=== PATIENT | female | born 1935 | race Caucasian/White ===

== ENCOUNTER 2018-01-25 14:44 | Inpatient (IN) ==
[2018-01-25] MEDS ORDERED: Vancomycin 1,500 MG in D5% in Water 250 ML IVPB SCH (17:00)
[2018-01-25] MEDS: *HR* Metformin 500 MG TABLET PO SCH (17:39)
[2018-01-25] MEDS ORDERED: Vancomycin 1,000 MG VIAL IVPB SCH (18:00)
[2018-01-25] MEDS: Lisinopril 20 MG TABLET PO SCH (20:03)
[2018-01-25] MEDS: Aspirin Enteric Coated 325 MG Tablet PO SCH (20:04)
[2018-01-26] MEDS ORDERED: [UNRECOGNIZED DRUG - OTHER] PO SCH (09:00)
[2018-01-26] MEDS: Multivit/Ca/Min/Fe/FA 1 TAB TABLET PO SCH (09:43)
[2018-01-26] MEDS: *HR* Metformin 500 MG TABLET PO SCH ×2 (09:43→17:16)
[2018-01-26] MEDS: Aspirin Enteric Coated 325 MG Tablet PO SCH ×2 (09:44→20:51)
[2018-01-26] MEDS: Lisinopril 20 MG TABLET PO SCH ×2 (09:44→20:50)
[2018-01-26] MEDS: Cholecalciferol (D-3) 1,000 UNIT TABLET PO SCH (09:44)
--- NOTE | 2018-01-26 18:28 | Internal Med History&Physical ---
Date of Encounter: 01/26/18 Time of Encounter: 17:55 Assessment and Plan (1) MSSA (methicillin susceptible Staphylococcus aureus) infection Current visit: Yes Status: Acute Continue IV antibiotics to complete 6 week course. Will add lactobacillus. (2) Status post revision of total hip replacement Current visit: No Status: Acute PT and OT evaluations have been ordered. She has been ordered aspirin for DVT prophylaxis. Monitor CBC. (3) DMII (diabetes mellitus, type 2) Current visit: No Status: Chronic Hemoglobin A1c was 6.5% in 01/17/2018. 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 Qualifiers: Hypertension type: essential hypertension Qualified Code(s): I10 - Essential (primary) hypertension (5) Acute blood loss anemia Current visit: No Status: Acute Monitor CBC as per above. Internal Medicine - H&P: HPI Chief complaint: Hip revision surgery Admitted From: Hospital to Hospital Transfer Plans for Post Hospital Care: Home History of present illness: Ms. Aburto is a 82 year old female who underwent right femoral revision of previous total hip replacement with irrigation and debridement due to infection on 08/21/2017. Her postop course was unremarkable and she was discharged to [facility] swing bed for IV antibiotics and therapy intervention. She states the original THR was done June 2014 at [facility]. She reports bumping her leg right femoral area March 2017 and developing a "knot " at the site of impact. She was eventually referred to after a few weeks who did an aspiration procedure and was found to have MSSA. She reports multiple courses of antibiotics failed to clear the infection. She was seen in wound clinic and hip MRI showed a fistulous tract. She was referred back to Dr. Valencia who did revision surgery of the femoral component without acetabular component revision. Cultures again grew MSSA. She was ordered IV vancomycin for 6 weeks. Her orthopedic history is significant otherwise for previous right ulnar nerve transposition surgery and bilateral arm fracture repair. She denies gout or other bone joint or muscle disorders. Past Med Surg Social Fam HX - Past Medical History Medical history: CVA, diabetes, hyperlipidemia, hypertension, osteoporosis, other Additional medical history: carpal tunnel syndrome Psychiatric history: no psych history - Past Surgical History Surgical History: cataract, hysterectomy, orthopedic, other, other Additional surgical history: right hip replacement 2014 - Social History Smoking Status: Never smoker Smokeless Tobacco Status: No Alcohol use: none Drug use: none - Family History Father Living Status: Hx Family Cardiac Disorders: Yes Internal Medicine - H&P: Meds Bran/Gum/Fib/Johana/Psyl/Kelp/Pec [Fiber 6 Tablet] 1,000 mg PO DAILY 08/06/17 [ History] Calcium Carbonate/Vitamin D3 [Calcium 600 + Vit D Tablet] 1 tab PO BID 08/06/17 [History] Clopidogrel [Plavix] 75 mg PO DAILY 08/06/17 [History] Ferrous Sulfate [Iron] 325 mg PO SUTH 08/06/17 [History] Lisinopril [Zestril] 20 mg PO BID 08/06/17 [History] Multivitamin [One Daily Multivitamin] 1 tab PO DAILY 08/06/17 [History] Rosuvastatin [Crestor] 20 mg PO HS 08/06/17 [History] metFORMIN [Glucophage] 500 mg PO BIDWM 08/06/17 [History] Aspirin Enteric Coated [Aspirin EC] 325 mg PO BID #20 tablet. 01/20/18 [Rx] OxyCODONE Immed Rel [Roxicodone 5 MG] 5 mg PO Q6HR PRN 7 Days #28 tablet [Rx] Acetaminophen [Tylenol] 650 mg PO Q6HR PRN 01/21/18 [History] Naproxen Sodium [Aleve] 220 mg PO BID PRN 01/21/18 [History] Vancomycin [Vancocin] 1,000 mg IV Q12HR 42 Days #84 vial 01/24/18 [Rx] 3 Allergy/AdvReac Type Severity Reaction Status Date / Time No Known Allergies Allergy Verified 01/21/18 14:03 All Systems PM: A 10-system review of systems was performed and is negative for pertinent findings except as documented above in the HPI. Review of systems: Gen.: She states her weight has been stable the past few months Cardiovascular: She has history of hypertension but denies [place] heart failure angina DVT or pulmonary embolus Respiratory: She is a lifelong nonsmoker and has no known chronic lung disease. GI: She denies disorders of her liver gallbladder or exocrine pancreas : She has had kidney stones remotely. She has had occasional UTIs. She denies other kidney or bladder disorders. Neurologic: She reports a "stroke" November 2016 with no permanent sequelae. She denies other large distribution strokes or seizures. Endocrine: She was diagnosed with DM 2 approximate 1997. She has hyperlipidemia but denies thyroid disease. Hematology/oncology: She developed postoperative anemia. She denies internal malignancies other blood disorders. Psychiatric: She has depression but denies anxiety or other mental health issues. [place] skeletal: As per history of present illness - Constitutional Vitals: Temp Pulse Resp BP Pulse Ox 98.2 F 94 16 125/72 98 01/26/18 06:31 01/26/18 06:31 01/26/18 06:31 01/26/18 06:31 01/26/18 06:31 Exam: Gen.: She is a well-developed well-nourished female sitting in a chair at bedside who appears in no acute distress HEENT: Head is atraumatic and normocephalic. Eyes: EOMI. There is no sclerae icterus. Mouth: Mucosa is moist. Neck: Supple and nontender. There is no thyromegaly or adenopathy noted. Heart: Regular without murmurs gallops or ectopics Lungs: No wheezes or crackles are heard. Abdomen: Soft and nontender. Exam is limited because she is in the seated position. Extremities: There is no cyanosis edema or clubbing noted. Dorsalis pedis and posttibial pulses are trace to 1+ palpable bilaterally. She has surgical dressing in the right upper hip area which I did not remove. She has DJD changes of her hands. Neurologic: Mental status: She is talkative and a good historian. Cranial nerves: Smile is symmetric. Forehead wrinkles bilaterally. Tongue protrudes midline. EOMI. Motor: There is no pronator drift. Cerebellar: Finger to nose is intact bilaterally. Skin: Warm and dry
[2018-01-26] MEDS: *HR* OxyCODONE Immed Rel 5 MG TABLET PO PRN (23:56)
[2018-01-27] MEDS: Lisinopril 20 MG TABLET PO SCH ×2 (09:03→20:54)
[2018-01-27] MEDS: Multivit/Ca/Min/Fe/FA 1 TAB TABLET PO SCH (09:03)
[2018-01-27] MEDS: Cholecalciferol (D-3) 1,000 UNIT TABLET PO SCH (09:03)
[2018-01-27] MEDS: Aspirin Enteric Coated 325 MG Tablet PO SCH ×2 (09:03→23:12)
[2018-01-27] MEDS: *HR* Metformin 500 MG TABLET PO SCH ×2 (09:03→17:31)
[2018-01-27] MEDS: *HR* OxyCODONE Immed Rel 5 MG TABLET PO PRN (14:10)
--- NOTE | 2018-01-27 14:59 | Internal Med Progress Note ---
Date of Encounter: 01/27/18 Time of Encounter: 14:50 - Assessment and plan (1) MSSA (methicillin susceptible Staphylococcus aureus) infection Current Visit: Yes Status: Acute Assessment and plan: January 27. Continue antibiotics with probiotics to complete a 6 week course. (2) Status post revision of total hip replacement Current Visit: No Status: Acute Assessment and plan: January 27. Continue therapy evaluation and ongoing intervention. Order labs in a.m. to monitor hemoglobin. I told her aspirin might be discontinued if anemia worsens significantly. (3) DMII (diabetes mellitus, type 2) Current Visit: No Status: Chronic Assessment and plan: January 27. Hemoglobin A1c was 6.5% on 01/17/2018. Continue Glucophage. 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 Continue lisinopril Qualifiers: Hypertension type: essential hypertension Qualified Code(s): I10 - Essential (primary) hypertension (5) Acute blood loss anemia Current Visit: No Status: Acute Assessment and plan: January 27. Check CBC as per above. - Subjective Interval history: January 27. She complains of pain in her right upper anteromedial thigh area. She thinks it may be due to leg movements in bed last night. - Constitutional Vitals: Temp Pulse Resp BP Pulse Ox 98.1 F 121 16 121/68 98 01/27/18 06:55 01/27/18 06:55 01/27/18 06:55 01/27/18 06:55 01/27/18 06:55 Exam: She is resting comfortably in bed and appears in no acute distress. Her affect is overall cheerful. She has trace to 1+ edema bilaterally. I reviewed her medications and lab results. Consult Discharge Plan - Plan Referrals: Lambert Mayes DO [Primary Care Provider] - 1 week
[2018-01-27] MEDS: Acetaminophen 325 MG TABLET PO PRN ×2 (17:30→23:12)
[2018-01-27] MEDS: Lactobacillus 1 EACH CAP.SPRINK PO SCH (20:54)
[2018-01-28] MEDS: *HR* OxyCODONE Immed Rel 5 MG TABLET PO PRN ×3 (00:05→18:51)
[2018-01-28 04:14] LABS: Basophils # 0.1 K/mcL (0.0-0.2); Basophils % 0.6 %; Eosinophils # 0.4 K/mcL (0.0-0.6); Eosinophils % 4.7 %; Hematocrit 26.4 % (35.3-44.9); Hemoglobin 8.6 g/dL (11.5-15.4); Immature Granulocytes % 0.4 % (0-4); Lymphocytes # 1.9 K/mcL (0.6-4.6); Lymphocytes % 22.9 %; Mean Corpuscular HGB Conc 32.6 g/dL (31.6-35.5); Mean Corpuscular Hemoglobin 28.6 pg (28.0-33.3); Mean Corpuscular Volume 87.7 fL (83.0-100.0); Mean Platelet Volume 9.1 fL (9.4-12.4); Monocytes # 0.8 K/mcL (0.0-1.3); Monocytes % 9.5 %; Neutrophils # 5.1 K/mcL (1.6-8.9); Platelet Count 284 K/mcL (140-400); Red Blood Count 3.01 M/mcL (3.82-4.97); Red Cell Distribution Width 15.7 % (11.5-14.5); Segmented Neutrophils % 61.9 %
[2018-01-28] MEDS: *HR* Metformin 500 MG TABLET PO SCH ×2 (08:08→17:03)
[2018-01-28] MEDS: Lactobacillus 1 EACH CAP.SPRINK PO SCH ×2 (08:08→21:35)
[2018-01-28] MEDS: Aspirin Enteric Coated 325 MG Tablet PO SCH (08:08)
[2018-01-28] MEDS: Cholecalciferol (D-3) 1,000 UNIT TABLET PO SCH (08:08)
[2018-01-28] MEDS: Multivit/Ca/Min/Fe/FA 1 TAB TABLET PO SCH (08:08)
[2018-01-28] MEDS: Lisinopril 20 MG TABLET PO SCH ×2 (08:08→21:35)
[2018-01-28 09:28] LABS: % Iron Saturation 6 % (15-50); Iron 16 mcg/dL (50-170); Transferrin 186 mg/dL (203-362)
[2018-01-28 09:46] LABS: Ferritin 36 ng/mL (10-120)
--- NOTE | 2018-01-28 15:55 | Internal Med Progress Note ---
Date of Encounter: 01/28/18 Time of Encounter: 15:35 - Assessment and plan (1) MSSA (methicillin susceptible Staphylococcus aureus) infection Current Visit: Yes Status: Acute Assessment and plan: January 27. Continue antibiotics with probiotics to complete a 6 week course. (2) Status post revision of total hip replacement Current Visit: No Status: Acute Assessment and plan: January 27. Continue therapy evaluation and ongoing intervention. Order labs in a.m. to monitor hemoglobin. I told her aspirin might be discontinued if anemia worsens significantly. January 28. Hemoglobin has decreased from 9.9 to 8.6. Aspirin will be discontinued and she will be placed on Lovenox for DVT prophylaxis. (3) DMII (diabetes mellitus, type 2) Current Visit: No Status: Chronic Assessment and plan: January 27. Hemoglobin A1c was 6.5% on 01/17/2018. Continue Glucophage. Qualifiers: Diabetes mellitus intermediate card tender insulin use: unspecified intermediate card tender insulin use status Diabetes mellitus complication status: with unspecified complications Qualified Code(s): E11.8 - Type 2 diabetes mellitus with unspecified complications (4) HTN (hypertension) Current Visit: No Status: Chronic Assessment and plan: January 27. Continue lisinopril Qualifiers: Hypertension type: essential hypertension Qualified Code(s): I10 - Essential (primary) hypertension (5) Acute blood loss anemia Current Visit: No Status: Acute Assessment and plan: January 27. Check CBC as per above. January 28. Hemoglobin decreased 8.6. Will start ferrous sulfate with vitamin C in a.m. and change from aspirin to Lovenox for DVT prophylaxis. - Subjective Interval history: January 27. She complains of pain in her right upper anteromedial thigh area. She thinks it may be due to leg movements in bed last night. January 28. Patient and staff noticed 2 vesicles measuring approximately 4-5 mm maximum diameter at the lateral edge of her anterior thigh incision site. Duration unknown since the area has been covered for 2-3 days. No other new problems have arisen. - Constitutional Vitals: Temp Pulse Resp BP Pulse Ox 98.3 F 87 16 128/73 99 01/28/18 06:32 01/28/18 06:32 01/28/18 06:32 01/28/18 06:32 01/28/18 06:32 Exam: She is resting comfortably in bed. The right leg shows 1+ edema and the left leg shows no edema. There is no effusion or increased warmth of the right knee. I reviewed her medications and lab results. Internal Medicine: Result - Labs CBC & Chem 7: 01/28/18 04:00 Labs: Short CBC 01/28/18 Range/Units 04:00 WBC 8.3 (4.3-11.1) K/mcL Hgb 8.6 L (11.5-15.4) g/dL Hct 26.4 L (35.3-44.9) % Plt Count 284 (140-400) K/mcL Neutrophils # 5.1 (1.6-8.9) K/mcL Consult Discharge Plan - Plan Referrals: Lambert Mayes DO [Primary Care Provider] - 1 week
[2018-01-29] MEDS: *HR* Enoxaparin 40 MG/0.4 ML SYRINGE SQ SCH (06:15)
[2018-01-29] MEDS: Ascorbic Acid 500 MG TABLET PO SCH (06:15)
[2018-01-29] MEDS: Lisinopril 20 MG TABLET PO SCH ×2 (09:47→20:07)
[2018-01-29] MEDS: Lactobacillus 1 EACH CAP.SPRINK PO SCH ×2 (09:47→20:06)
[2018-01-29] MEDS: Acetaminophen 325 MG TABLET PO PRN ×2 (09:47→20:07)
[2018-01-29] MEDS: *HR* Metformin 500 MG TABLET PO SCH ×2 (09:47→17:34)
[2018-01-29] MEDS: Multivit/Ca/Min/Fe/FA 1 TAB TABLET PO SCH (09:49)
[2018-01-29] MEDS: Cholecalciferol (D-3) 1,000 UNIT TABLET PO SCH (09:52)
--- NOTE | 2018-01-29 15:21 | Internal Med Progress Note ---
Date of Encounter: 01/29/18 Time of Encounter: 15:10 - Assessment and plan (1) MSSA (methicillin susceptible Staphylococcus aureus) infection Current Visit: Yes Status: Acute Assessment and plan: January 27. Continue antibiotics with probiotics to complete a 6 week course. (2) Status post revision of total hip replacement Current Visit: No Status: Acute Assessment and plan: January 27. Continue therapy evaluation and ongoing intervention. Order labs in a.m. to monitor hemoglobin. I told her aspirin might be discontinued if anemia worsens significantly. January 28. Hemoglobin has decreased from 9.9 to 8.6. Aspirin will be discontinued and she will be placed on Lovenox for DVT prophylaxis. January 29. Recheck CBC in a.m. (3) DMII (diabetes mellitus, type 2) Current Visit: No Status: Chronic Assessment and plan: January 27. Hemoglobin A1c was 6.5% on 01/17/2018. Continue Glucophage. Qualifiers: Diabetes mellitus group home insulin use: unspecified group home insulin use status Diabetes mellitus complication status: with unspecified complications Qualified Code(s): E11.8 - Type 2 diabetes mellitus with unspecified complications (4) HTN (hypertension) Current Visit: No Status: Chronic Assessment and plan: January 27. Continue lisinopril Qualifiers: Hypertension type: essential hypertension Qualified Code(s): I10 - Essential (primary) hypertension (5) Acute blood loss anemia Current Visit: No Status: Acute Assessment and plan: January 27. Check CBC as per above. January 28. Hemoglobin decreased 8.6. Will start ferrous sulfate with vitamin C in a.m. and change from aspirin to Lovenox for DVT prophylaxis. January 29. Recheck labs in a.m. - Subjective Interval history: January 27. She complains of pain in her right upper anteromedial thigh area. She thinks it may be due to leg movements in bed last night. January 28. Patient and staff noticed 2 vesicles measuring approximately 4-5 mm maximum diameter at the lateral edge of her anterior thigh incision site. Duration unknown since the area has been covered for 2-3 days. No other new problems have arisen. January 29. She has no new complaints. She still has pain in her right knee. - Constitutional Vitals: Temp Pulse Resp BP Pulse Ox 97.9 F 73 15 135/78 97 01/29/18 06:38 01/29/18 06:38 01/29/18 06:38 01/29/18 06:38 01/29/18 06:38 Exam: She is resting comfortably in bed and appears in no acute distress. The vesicles on her right thigh appear unchanged. There is no increased warmth or significant effusion felt to be present in the right knee. I reviewed her medications and past lab results. Internal Medicine: Result - Labs CBC & Chem 7: 01/28/18 04:00 Consult Discharge Plan - Plan Referrals: Lambert Mayes DO [Primary Care Provider] - 1 week
[2018-01-30] MEDS: *HR* Enoxaparin 40 MG/0.4 ML SYRINGE SQ SCH (05:42)
[2018-01-30] MEDS: Ascorbic Acid 500 MG TABLET PO SCH (05:42)
[2018-01-30] MEDS: *HR* Metformin 500 MG TABLET PO SCH ×2 (07:54→17:11)
[2018-01-30] MEDS: Lactobacillus 1 EACH CAP.SPRINK PO SCH ×2 (07:59→20:12)
[2018-01-30] MEDS: Cholecalciferol (D-3) 1,000 UNIT TABLET PO SCH (08:00)
[2018-01-30] MEDS: Multivit/Ca/Min/Fe/FA 1 TAB TABLET PO SCH (08:00)
[2018-01-30] MEDS: Lisinopril 20 MG TABLET PO SCH ×2 (08:00→20:12)
[2018-01-30] MEDS: *HR* OxyCODONE Immed Rel 5 MG TABLET PO PRN (10:14)
[2018-01-30] MEDS: Acetaminophen 325 MG TABLET PO PRN (20:12)
[2018-01-31] MEDS: Acetaminophen 325 MG TABLET PO PRN (05:34)
[2018-01-31] MEDS: Ascorbic Acid 500 MG TABLET PO SCH (05:34)
[2018-01-31] MEDS: *HR* Enoxaparin 40 MG/0.4 ML SYRINGE SQ SCH (05:35)
[2018-01-31] MEDS: Lisinopril 20 MG TABLET PO SCH ×2 (08:56→20:04)
[2018-01-31] MEDS: Multivit/Ca/Min/Fe/FA 1 TAB TABLET PO SCH (08:57)
[2018-01-31] MEDS: Lactobacillus 1 EACH CAP.SPRINK PO SCH ×2 (08:57→20:04)
[2018-01-31] MEDS: Cholecalciferol (D-3) 1,000 UNIT TABLET PO SCH (08:57)
[2018-01-31] MEDS: *HR* Metformin 500 MG TABLET PO SCH ×2 (08:57→16:12)
[2018-01-31] MEDS: *HR* OxyCODONE Immed Rel 5 MG TABLET PO PRN (23:58)
[2018-02-01] MEDS: Ascorbic Acid 500 MG TABLET PO SCH (06:17)
[2018-02-01] MEDS: *HR* Enoxaparin 40 MG/0.4 ML SYRINGE SQ SCH (06:17)
[2018-02-01] MEDS: *HR* OxyCODONE Immed Rel 5 MG TABLET PO PRN (07:49)
[2018-02-01] MEDS: Lisinopril 20 MG TABLET PO SCH ×2 (07:49→20:19)
[2018-02-01] MEDS: Multivit/Ca/Min/Fe/FA 1 TAB TABLET PO SCH (07:50)
[2018-02-01] MEDS: Lactobacillus 1 EACH CAP.SPRINK PO SCH ×2 (07:50→20:19)
[2018-02-01] MEDS: *HR* Metformin 500 MG TABLET PO SCH ×2 (07:50→17:45)
[2018-02-01] MEDS: Cholecalciferol (D-3) 1,000 UNIT TABLET PO SCH (07:58)
--- NOTE | 2018-02-01 11:20 | Internal Med Progress Note ---
Date of Encounter: 02/01/18 Time of Encounter: 11:10 - Assessment and plan (1) MSSA (methicillin susceptible Staphylococcus aureus) infection Current Visit: Yes Status: Acute Assessment and plan: January 27. Continue antibiotics with probiotics to complete a 6 week course. (2) Status post revision of total hip replacement Current Visit: No Status: Acute Assessment and plan: January 27. Continue therapy evaluation and ongoing intervention. Order labs in a.m. to monitor hemoglobin. I told her aspirin might be discontinued if anemia worsens significantly. January 28. Hemoglobin has decreased from 9.9 to 8.6. Aspirin will be discontinued and she will be placed on Lovenox for DVT prophylaxis. January 29. Recheck CBC in a.m. February 01. Continue present regimen. (3) DMII (diabetes mellitus, type 2) Current Visit: No Status: Chronic Assessment and plan: January 27. Hemoglobin A1c was 6.5% on 01/17/2018. Continue Glucophage. Qualifiers: Diabetes mellitus shelter insulin use: unspecified terminal supervisor insulin use status Diabetes mellitus complication status: with unspecified complications Qualified Code(s): E11.8 - Type 2 diabetes mellitus with unspecified complications (4) HTN (hypertension) Current Visit: No Status: Chronic Assessment and plan: January 27. Continue lisinopril Qualifiers: Hypertension type: essential hypertension Qualified Code(s): I10 - Essential (primary) hypertension (5) Acute blood loss anemia Current Visit: No Status: Acute Assessment and plan: January 27. Check CBC as per above. January 28. Hemoglobin decreased 8.6. Will start ferrous sulfate with vitamin C in a.m. and change from aspirin to Lovenox for DVT prophylaxis. January 29. Recheck labs in a.m. February 01. CBC pending. - Subjective Interval history: January 27. She complains of pain in her right upper anteromedial thigh area. She thinks it may be due to leg movements in bed last night. January 28. Patient and staff noticed 2 vesicles measuring approximately 4-5 mm maximum diameter at the lateral edge of her anterior thigh incision site. Duration unknown since the area has been covered for 2-3 days. No other new problems have arisen. January 29. She has no new complaints. She still has pain in her right knee. February 01. She has no new complaints. She was seen in the orthopedist office on October 3. The staff felt her complaints of knee pain was due to the length of femur prosthesis. She is still awaiting initial appointment with infectious disease to determine duration of IV antibiotics. - Constitutional Vitals: Temp Pulse Resp BP Pulse Ox 97.6 F 84 14 136/74 97 02/01/18 06:50 02/01/18 06:50 02/01/18 06:50 02/01/18 06:50 02/01/18 06:50 Exam: She is resting comfortably in a chair at bedside and appears in no acute distress. Her affect is cheerful. I reviewed her medications and lab results. Internal Medicine: Result - Labs CBC & Chem 7: 01/28/18 04:00 Consult Discharge Plan - Plan Referrals: Lambert Mayes DO [Primary Care Provider] - 1 week
[2018-02-01 12:43] LABS: Basophils # 0.1 K/mcL (0.0-0.2); Basophils % 0.7 %; Eosinophils # 0.3 K/mcL (0.0-0.6); Eosinophils % 2.6 %; Hematocrit 30.2 % (35.3-44.9); Hemoglobin 9.5 g/dL (11.5-15.4); Immature Granulocytes % 0.6 % (0-4); Lymphocytes # 2.1 K/mcL (0.6-4.6); Lymphocytes % 21.1 %; Mean Corpuscular HGB Conc 31.5 g/dL (31.6-35.5); Mean Corpuscular Hemoglobin 28.4 pg (28.0-33.3); Mean Corpuscular Volume 90.4 fL (83.0-100.0); Mean Platelet Volume 8.8 fL (9.4-12.4); Monocytes # 0.8 K/mcL (0.0-1.3); Monocytes % 8.1 %; Neutrophils # 6.6 K/mcL (1.6-8.9); Platelet Count 498 K/mcL (140-400); Red Blood Count 3.34 M/mcL (3.82-4.97); Red Cell Distribution Width 15.8 % (11.5-14.5); Segmented Neutrophils % 66.9 %
[2018-02-01 13:11] LABS: BUN/Creatinine Ratio 19 (6-26); Blood Urea Nitrogen 15 mg/dL (8-23); Calcium 8.9 mg/dL (8.6-10.3); Carbon Dioxide 27 mEq/L (23-29); Chloride 101 mEq/L (98-107); Glucose 101 mg/dL (70-105); Osmolality,Calculated 285 (280-300); Potassium 3.6 mEq/L (3.5-5.1); Sodium 137 mEq/L (136-145); eGFR For Non-African Americans > 60 (> 60)
[2018-02-02] MEDS: Ascorbic Acid 500 MG TABLET PO SCH (06:22)
[2018-02-02] MEDS: *HR* Enoxaparin 40 MG/0.4 ML SYRINGE SQ SCH (06:22)
[2018-02-02] MEDS: Lactobacillus 1 EACH CAP.SPRINK PO SCH ×2 (08:39→19:56)
[2018-02-02] MEDS: Multivit/Ca/Min/Fe/FA 1 TAB TABLET PO SCH (08:39)
[2018-02-02] MEDS: *HR* Metformin 500 MG TABLET PO SCH ×2 (08:39→17:30)
[2018-02-02] MEDS: Lisinopril 20 MG TABLET PO SCH ×2 (08:39→19:56)
[2018-02-02] MEDS: Cholecalciferol (D-3) 1,000 UNIT TABLET PO SCH (08:48)
[2018-02-02] MEDS: *HR* OxyCODONE Immed Rel 5 MG TABLET PO PRN ×2 (13:03→19:56)
[2018-02-03] MEDS: *HR* Enoxaparin 40 MG/0.4 ML SYRINGE SQ SCH (06:38)
[2018-02-03] MEDS: Ascorbic Acid 500 MG TABLET PO SCH (06:38)
[2018-02-03] MEDS: *HR* Metformin 500 MG TABLET PO SCH ×2 (08:51→18:28)
[2018-02-03] MEDS: Lisinopril 20 MG TABLET PO SCH ×2 (08:51→20:05)
[2018-02-03] MEDS: Lactobacillus 1 EACH CAP.SPRINK PO SCH ×2 (08:51→20:05)
[2018-02-03] MEDS: Multivit/Ca/Min/Fe/FA 1 TAB TABLET PO SCH (08:51)
[2018-02-03] MEDS: Cholecalciferol (D-3) 1,000 UNIT TABLET PO SCH (08:52)
--- NOTE | 2018-02-03 17:24 | Internal Med Progress Note ---
Date of Encounter: 02/03/18 Time of Encounter: 17:00 - Assessment and plan (1) MSSA (methicillin susceptible Staphylococcus aureus) infection Current Visit: Yes Status: Acute Assessment and plan: January 27. Continue antibiotics with probiotics to complete a 6 week course. (2) Status post revision of total hip replacement Current Visit: No Status: Acute Assessment and plan: January 27. Continue therapy evaluation and ongoing intervention. Order labs in a.m. to monitor hemoglobin. I told her aspirin might be discontinued if anemia worsens significantly. January 28. Hemoglobin has decreased from 9.9 to 8.6. Aspirin will be discontinued and she will be placed on Lovenox for DVT prophylaxis. January 29. Recheck CBC in a.m. February 01. Continue present regimen. February 03. Hold Plavix and Lovenox 24 hours to allow oozing to decrease. (3) DMII (diabetes mellitus, type 2) Current Visit: No Status: Chronic Assessment and plan: January 27. Hemoglobin A1c was 6.5% on 01/17/2018. Continue Glucophage. February 03. Blood sugars satisfactory. Continue Glucophage. Qualifiers: Diabetes mellitus mcfp insulin use: unspecified terminal operator insulin use status Diabetes mellitus complication status: with unspecified complications Qualified Code(s): E11.8 - Type 2 diabetes mellitus with unspecified complications (4) HTN (hypertension) Current Visit: No Status: Chronic Assessment and plan: January 27. Continue lisinopril Qualifiers: Hypertension type: essential hypertension Qualified Code(s): I10 - Essential (primary) hypertension (5) Acute blood loss anemia Current Visit: No Status: Acute Assessment and plan: January 27. Check CBC as per above. January 28. Hemoglobin decreased 8.6. Will start ferrous sulfate with vitamin C in a.m. and change from aspirin to Lovenox for DVT prophylaxis. January 29. Recheck labs in a.m. February 01. CBC pending. February 03. Hemoglobin improved to 9.5. Continue present regimen. - Subjective Interval history: January 27. She complains of pain in her right upper anteromedial thigh area. She thinks it may be due to leg movements in bed last night. January 28. Patient and staff noticed 2 vesicles measuring approximately 4-5 mm maximum diameter at the lateral edge of her anterior thigh incision site. Duration unknown since the area has been covered for 2-3 days. No other new problems have arisen. January 29. She has no new complaints. She still has pain in her right knee. February 01. She has no new complaints. She was seen in the orthopedist office on January 30. The staff felt her complaints of knee pain was due to the length of femur prosthesis. She is still awaiting initial appointment with infectious disease to determine duration of IV antibiotics. February 03. She has no new complaints. Nurse reports there was sanguinous oozing on her hip dressing. - Constitutional Vitals: Temp Pulse Resp BP Pulse Ox 98.5 F 86 16 119/68 94 02/03/18 07:20 02/03/18 07:20 02/03/18 07:20 02/03/18 07:20 02/03/18 07:20 Exam: She is resting comfortably in bed. The staple line is clean with a single area of small serous fluid in the distal portion of the staple line around 1-2 evelin. No significant ecchymosis or hematomas noted. No fluid is expressed on compression around the fluid collection. She has 1+ edema of the right lower leg and 0 to trace edema of the left lower leg. I reviewed her medications and lab results. Internal Medicine: Result - Labs CBC & Chem 7: 02/01/18 12:30 02/01/18 12:30 Consult Discharge Plan - Plan Referrals: Lambert Mayes DO [Primary Care Provider] - 1 week
[2018-02-03] MEDS: *HR* OxyCODONE Immed Rel 5 MG TABLET PO PRN (18:29)
[2018-02-04] MEDS: Ascorbic Acid 500 MG TABLET PO SCH (05:53)
[2018-02-04] MEDS: *HR* Metformin 500 MG TABLET PO SCH ×2 (08:56→17:39)
[2018-02-04] MEDS: Cholecalciferol (D-3) 1,000 UNIT TABLET PO SCH (08:56)
[2018-02-04] MEDS: Multivit/Ca/Min/Fe/FA 1 TAB TABLET PO SCH (08:57)
[2018-02-04] MEDS: Lactobacillus 1 EACH CAP.SPRINK PO SCH ×2 (08:57→20:58)
[2018-02-04] MEDS: Lisinopril 20 MG TABLET PO SCH ×2 (08:57→20:58)
[2018-02-04] MEDS: *HR* OxyCODONE Immed Rel 5 MG TABLET PO PRN (14:10)
[2018-02-04] MEDS: Acetaminophen 325 MG TABLET PO PRN (17:38)
[2018-02-05] MEDS: Ascorbic Acid 500 MG TABLET PO SCH (05:41)
[2018-02-05] MEDS: Acetaminophen 325 MG TABLET PO PRN ×2 (05:42→13:31)
[2018-02-05] MEDS: *HR* Metformin 500 MG TABLET PO SCH ×2 (07:55→16:38)
[2018-02-05] MEDS: Cholecalciferol (D-3) 1,000 UNIT TABLET PO SCH (07:55)
[2018-02-05] MEDS: Lisinopril 20 MG TABLET PO SCH ×2 (07:55→19:57)
[2018-02-05] MEDS: Multivit/Ca/Min/Fe/FA 1 TAB TABLET PO SCH (07:55)
[2018-02-05] MEDS: Lactobacillus 1 EACH CAP.SPRINK PO SCH ×2 (07:55→19:56)
[2018-02-06] MEDS: *HR* Enoxaparin 40 MG/0.4 ML SYRINGE SQ SCH (05:39)
[2018-02-06] MEDS: Ascorbic Acid 500 MG TABLET PO SCH (05:40)
[2018-02-06] MEDS: Acetaminophen 325 MG TABLET PO PRN (08:08)
[2018-02-06] MEDS: Lisinopril 20 MG TABLET PO SCH ×2 (08:08→20:21)
[2018-02-06] MEDS: Cholecalciferol (D-3) 1,000 UNIT TABLET PO SCH (08:08)
[2018-02-06] MEDS: *HR* Metformin 500 MG TABLET PO SCH ×2 (08:08→18:05)
[2018-02-06] MEDS: Multivit/Ca/Min/Fe/FA 1 TAB TABLET PO SCH (08:08)
[2018-02-06] MEDS: Lactobacillus 1 EACH CAP.SPRINK PO SCH ×2 (08:08→20:20)
[2018-02-07] MEDS: Ascorbic Acid 500 MG TABLET PO SCH (05:42)
[2018-02-07] MEDS: *HR* Enoxaparin 40 MG/0.4 ML SYRINGE SQ SCH (05:42)
[2018-02-07] MEDS: Lactobacillus 1 EACH CAP.SPRINK PO SCH ×2 (09:42→21:03)
[2018-02-07] MEDS: *HR* Metformin 500 MG TABLET PO SCH ×2 (09:43→17:14)
[2018-02-07] MEDS: Cholecalciferol (D-3) 1,000 UNIT TABLET PO SCH (09:43)
[2018-02-07] MEDS: Multivit/Ca/Min/Fe/FA 1 TAB TABLET PO SCH (09:43)
[2018-02-07] MEDS: Lisinopril 20 MG TABLET PO SCH ×2 (09:43→21:03)
--- NOTE | 2018-02-07 11:10 | Internal Med Progress Note ---
Date of Encounter: 02/07/18 Time of Encounter: 11:00 - Assessment and plan (1) MSSA (methicillin susceptible Staphylococcus aureus) infection Current Visit: Yes Status: Acute Assessment and plan: January 27. Continue antibiotics with probiotics to complete a 6 week course. February 07. She will see the orthopedist staff tomorrow to determine if antibiotics will be stopped after 4 weeks or continue for 6 weeks total. (2) Status post revision of total hip replacement Current Visit: No Status: Acute Assessment and plan: January 27. Continue therapy evaluation and ongoing intervention. Order labs in a.m. to monitor hemoglobin. I told her aspirin might be discontinued if anemia worsens significantly. January 28. Hemoglobin has decreased from 9.9 to 8.6. Aspirin will be discontinued and she will be placed on Lovenox for DVT prophylaxis. January 29. Recheck CBC in a.m. February 01. Continue present regimen. February 03. Hold Plavix and Lovenox 24 hours to allow oozing to decrease. (3) DMII (diabetes mellitus, type 2) Current Visit: No Status: Chronic Assessment and plan: January 27. Hemoglobin A1c was 6.5% on 01/17/2018. Continue Glucophage. February 03. Blood sugars satisfactory. Continue Glucophage. 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 Continue lisinopril Qualifiers: Hypertension type: essential hypertension Qualified Code(s): I10 - Essential (primary) hypertension (5) Acute blood loss anemia Current Visit: No Status: Acute Assessment and plan: January 27. Check CBC as per above. January 28. Hemoglobin decreased 8.6. Will start ferrous sulfate with vitamin C in a.m. and change from aspirin to Lovenox for DVT prophylaxis. January 29. Recheck labs in a.m. February 01. CBC pending. February 03. Hemoglobin improved to 9.5. Continue present regimen. February 07. Recheck labs in a.m. - Subjective Interval history: January 27. She complains of pain in her right upper anteromedial thigh area. She thinks it may be due to leg movements in bed last night. January 28. Patient and staff noticed 2 vesicles measuring approximately 4-5 mm maximum diameter at the lateral edge of her anterior thigh incision site. Duration unknown since the area has been covered for 2-3 days. No other new problems have arisen. January 29. She has no new complaints. She still has pain in her right knee. February 01. She has no new complaints. She was seen in the orthopedist office on January 30. The staff felt her complaints of knee pain was due to the length of femur prosthesis. She is still awaiting initial appointment with infectious disease to determine duration of IV antibiotics. February 03. She has no new complaints. Nurse reports there was sanguinous oozing on her hip dressing. February 07. She has no new complaints. Wound oozing has stopped - Constitutional Vitals: Temp Pulse Resp BP Pulse Ox 98.4 F 87 14 147/78 96 02/07/18 06:14 02/07/18 06:14 02/07/18 06:14 02/07/18 06:14 02/07/18 06:14 Exam: She is sitting in a chair at bedside resting currently. Her affect is bright and cheerful. I reviewed her medications and lab results. Internal Medicine: Result - Labs CBC & Chem 7: 02/01/18 12:30 02/01/18 12:30 Consult Discharge Plan - Plan Referrals: Lambert Mayes DO [Primary Care Provider] - 1 week
[2018-02-07] MEDS: Acetaminophen 325 MG TABLET PO PRN (21:03)
[2018-02-08 04:17] LABS: Basophils # 0.1 K/mcL (0.0-0.2); Basophils % 1.6 %; Eosinophils # 0.3 K/mcL (0.0-0.6); Eosinophils % 4.4 %; Hematocrit 27.8 % (35.3-44.9); Hemoglobin 8.8 g/dL (11.5-15.4); Immature Granulocytes % 0.3 % (0-4); Lymphocytes # 1.5 K/mcL (0.6-4.6); Lymphocytes % 24.1 %; Mean Corpuscular HGB Conc 31.7 g/dL (31.6-35.5); Mean Corpuscular Hemoglobin 28.2 pg (28.0-33.3); Mean Corpuscular Volume 89.1 fL (83.0-100.0); Mean Platelet Volume 8.8 fL (9.4-12.4); Monocytes # 0.6 K/mcL (0.0-1.3); Monocytes % 10.3 %; Neutrophils # 3.7 K/mcL (1.6-8.9); Platelet Count 494 K/mcL (140-400); Red Blood Count 3.12 M/mcL (3.82-4.97); Red Cell Distribution Width 15.8 % (11.5-14.5); Segmented Neutrophils % 59.3 %
[2018-02-08] MEDS: Ascorbic Acid 500 MG TABLET PO SCH (07:16)
[2018-02-08] MEDS: *HR* Enoxaparin 40 MG/0.4 ML SYRINGE SQ SCH (07:16)
[2018-02-08] MEDS: Lisinopril 20 MG TABLET PO SCH ×2 (08:06→21:04)
[2018-02-08] MEDS: *HR* Metformin 500 MG TABLET PO SCH ×2 (08:06→18:14)
[2018-02-08] MEDS: Lactobacillus 1 EACH CAP.SPRINK PO SCH ×2 (08:06→21:04)
[2018-02-08] MEDS: Multivit/Ca/Min/Fe/FA 1 TAB TABLET PO SCH (08:06)
[2018-02-08] MEDS: Acetaminophen 325 MG TABLET PO PRN ×2 (08:06→18:16)
[2018-02-08] MEDS: Cholecalciferol (D-3) 1,000 UNIT TABLET PO SCH (08:07)
[2018-02-08] MEDS ORDERED: Aminoglycoside Consult 1 EACH MC ONE (09:00)
[2018-02-09] MEDS: Acetaminophen 325 MG TABLET PO PRN ×2 (01:07→14:12)
[2018-02-09] MEDS: Ascorbic Acid 500 MG TABLET PO SCH (05:48)
[2018-02-09] MEDS: *HR* Enoxaparin 40 MG/0.4 ML SYRINGE SQ SCH (05:49)
[2018-02-09] MEDS: Lisinopril 20 MG TABLET PO SCH ×2 (08:38→21:25)
[2018-02-09] MEDS: Lactobacillus 1 EACH CAP.SPRINK PO SCH ×2 (08:38→21:25)
[2018-02-09] MEDS: Multivit/Ca/Min/Fe/FA 1 TAB TABLET PO SCH (08:38)
[2018-02-09] MEDS: *HR* Metformin 500 MG TABLET PO SCH ×2 (08:38→17:45)
[2018-02-09] MEDS: Methyl Salicylate/Menthol 28 GM TUBE TP PRN (17:48)
--- NOTE | 2018-02-09 18:03 | Internal Med Progress Note ---
Date of Encounter: 02/09/18 Time of Encounter: 17:55 - Assessment and plan (1) MSSA (methicillin susceptible Staphylococcus aureus) infection Current Visit: Yes Status: Acute Assessment and plan: January 27. Continue antibiotics with probiotics to complete a 6 week course. February 07. She will see the orthopedist staff tomorrow to determine if antibiotics will be stopped after 4 weeks or continue for 6 weeks total. February 09. Start Ancef and continue 4 weeks. Continue lactobacillus. (2) Status post revision of total hip replacement Current Visit: No Status: Acute Assessment and plan: January 27. Continue therapy evaluation and ongoing intervention. Order labs in a.m. to monitor hemoglobin. I told her aspirin might be discontinued if anemia worsens significantly. January 28. Hemoglobin has decreased from 9.9 to 8.6. Aspirin will be discontinued and she will be placed on Lovenox for DVT prophylaxis. January 29. Recheck CBC in a.m. February 01. Continue present regimen. February 03. Hold Plavix and Lovenox 24 hours to allow oozing to decrease. February 09. Oozing resolved after withholding Plavix and Lovenox 24 hours. (3) DMII (diabetes mellitus, type 2) Current Visit: No Status: Chronic Assessment and plan: January 27. Hemoglobin A1c was 6.5% on 01/17/2018. Continue Glucophage. February 03. Blood sugars satisfactory. Continue Glucophage. 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 Continue lisinopril Qualifiers: Hypertension type: essential hypertension Qualified Code(s): I10 - Essential (primary) hypertension (5) Acute blood loss anemia Current Visit: No Status: Acute Assessment and plan: January 27. Check CBC as per above. January 28. Hemoglobin decreased 8.6. Will start ferrous sulfate with vitamin C in a.m. and change from aspirin to Lovenox for DVT prophylaxis. January 29. Recheck labs in a.m. February 01. CBC pending. February 03. Hemoglobin improved to 9.5. Continue present regimen. February 07. Recheck labs in a.m. February 09. Hemoglobin decreased to 8.8. Continue to monitor periodically. - Subjective Interval history: January 27. She complains of pain in her right upper anteromedial thigh area. She thinks it may be due to leg movements in bed last night. January 28. Patient and staff noticed 2 vesicles measuring approximately 4-5 mm maximum diameter at the lateral edge of her anterior thigh incision site. Duration unknown since the area has been covered for 2-3 days. No other new problems have arisen. January 29. She has no new complaints. She still has pain in her right knee. February 01. She has no new complaints. She was seen in the orthopedist office on January 30. The staff felt her complaints of knee pain was due to the length of femur prosthesis. She is still awaiting initial appointment with infectious disease to determine duration of IV antibiotics. February 03. She has no new complaints. Nurse reports there was sanguinous oozing on her hip dressing. February 07. She has no new complaints. Wound oozing has stopped February 09. She has no new complaints. She was seen at the orthopedist office yesterday. Vancomycin was discontinued after 2.5 weeks. Recommendation was made to change to a different antibiotic for additional 4 weeks. - Constitutional Vitals: Temp Pulse Resp BP Pulse Ox 97.7 F 94 17 174/83 97 02/09/18 06:17 02/09/18 06:17 02/09/18 06:17 02/09/18 06:17 02/09/18 06:17 Exam: She is sitting in a chair at bedside resting comfortably. Her affect is overall cheerful. I reviewed her medications and lab results. Internal Medicine: Result - Labs CBC & Chem 7: 02/08/18 04:05 02/01/18 12:30 Consult Discharge Plan - Plan Referrals: Lambert Mayes DO [Primary Care Provider] - 1 week
[2018-02-09] MEDS: ceFAZolin 1,000 MG in Water for inj. (sterile) 20 ML 10 ML IVP SCH (18:35)
[2018-02-10] MEDS: ceFAZolin 1,000 MG in Water for inj. (sterile) 20 ML 10 ML IVP SCH ×3 (01:55→17:38)
[2018-02-10] MEDS: Ascorbic Acid 500 MG TABLET PO SCH (06:32)
[2018-02-10] MEDS: *HR* Enoxaparin 40 MG/0.4 ML SYRINGE SQ SCH (06:32)
[2018-02-10] MEDS: Lactobacillus 1 EACH CAP.SPRINK PO SCH ×2 (09:34→19:58)
[2018-02-10] MEDS: Multivit/Ca/Min/Fe/FA 1 TAB TABLET PO SCH (09:35)
[2018-02-10] MEDS: *HR* Metformin 500 MG TABLET PO SCH ×2 (09:35→17:20)
[2018-02-10] MEDS: Lisinopril 20 MG TABLET PO SCH ×2 (09:35→19:58)
[2018-02-10] MEDS: Methyl Salicylate/Menthol 28 GM TUBE TP PRN ×2 (09:55→20:04)
[2018-02-11] MEDS: ceFAZolin 1,000 MG in Water for inj. (sterile) 20 ML 10 ML IVP SCH ×3 (01:33→16:40)
[2018-02-11] MEDS: *HR* Enoxaparin 40 MG/0.4 ML SYRINGE SQ SCH (05:56)
[2018-02-11] MEDS: Ascorbic Acid 500 MG TABLET PO SCH (05:56)
[2018-02-11] MEDS: *HR* Metformin 500 MG TABLET PO SCH ×2 (07:52→16:40)
[2018-02-11] MEDS: Methyl Salicylate/Menthol 28 GM TUBE TP PRN (07:57)
[2018-02-11] MEDS: Lactobacillus 1 EACH CAP.SPRINK PO SCH ×2 (08:02→20:05)
[2018-02-11] MEDS: Multivit/Ca/Min/Fe/FA 1 TAB TABLET PO SCH (08:02)
[2018-02-11] MEDS: Lisinopril 20 MG TABLET PO SCH ×2 (08:02→20:05)
[2018-02-12] MEDS: ceFAZolin 1,000 MG in Water for inj. (sterile) 20 ML 10 ML IVP SCH ×3 (00:17→16:47)
[2018-02-12] MEDS: *HR* Enoxaparin 40 MG/0.4 ML SYRINGE SQ SCH (05:40)
[2018-02-12] MEDS: Ascorbic Acid 500 MG TABLET PO SCH (05:40)
[2018-02-12] MEDS: Lisinopril 20 MG TABLET PO SCH ×2 (09:08→20:57)
[2018-02-12] MEDS: Methyl Salicylate/Menthol 28 GM TUBE TP PRN (09:08)
[2018-02-12] MEDS: *HR* Metformin 500 MG TABLET PO SCH ×2 (09:08→16:47)
[2018-02-12] MEDS: Multivit/Ca/Min/Fe/FA 1 TAB TABLET PO SCH (09:08)
[2018-02-12] MEDS: Lactobacillus 1 EACH CAP.SPRINK PO SCH ×2 (09:08→20:57)
--- NOTE | 2018-02-12 18:09 | Internal Med Progress Note ---
Date of Encounter: 02/12/18 Time of Encounter: 18:00 - Assessment and plan (1) MSSA (methicillin susceptible Staphylococcus aureus) infection Current Visit: Yes Status: Acute Assessment and plan: January 27. Continue antibiotics with probiotics to complete a 6 week course. February 07. She will see the orthopedist staff tomorrow to determine if antibiotics will be stopped after 4 weeks or continue for 6 weeks total. February 09. Start Ancef and continue 4 weeks. Continue lactobacillus. February 12. Continue Ancef with lactobacillus through 03/08/2018. (2) Status post revision of total hip replacement Current Visit: No Status: Acute Assessment and plan: January 27. Continue therapy evaluation and ongoing intervention. Order labs in a.m. to monitor hemoglobin. I told her aspirin might be discontinued if anemia worsens significantly. January 28. Hemoglobin has decreased from 9.9 to 8.6. Aspirin will be discontinued and she will be placed on Lovenox for DVT prophylaxis. January 29. Recheck CBC in a.m. February 01. Continue present regimen. February 03. Hold Plavix and Lovenox 24 hours to allow oozing to decrease. February 09. Oozing resolved after withholding Plavix and Lovenox 24 hours. (3) DMII (diabetes mellitus, type 2) Current Visit: No Status: Chronic Assessment and plan: January 27. Hemoglobin A1c was 6.5% on 01/17/2018. Continue Glucophage. February 03. Blood sugars satisfactory. Continue Glucophage. 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 Continue lisinopril Qualifiers: Hypertension type: essential hypertension Qualified Code(s): I10 - Essential (primary) hypertension (5) Acute blood loss anemia Current Visit: No Status: Acute Assessment and plan: January 27. Check CBC as per above. January 28. Hemoglobin decreased 8.6. Will start ferrous sulfate with vitamin C in a.m. and change from aspirin to Lovenox for DVT prophylaxis. January 29. Recheck labs in a.m. February 01. CBC pending. February 03. Hemoglobin improved to 9.5. Continue present regimen. February 07. Recheck labs in a.m. February 09. Hemoglobin decreased to 8.8. Continue to monitor periodically. February 12. Recheck labs in a.m. - Subjective Interval history: January 27. She complains of pain in her right upper anteromedial thigh area. She thinks it may be due to leg movements in bed last night. January 28. Patient and staff noticed 2 vesicles measuring approximately 4-5 mm maximum diameter at the lateral edge of her anterior thigh incision site. Duration unknown since the area has been covered for 2-3 days. No other new problems have arisen. January 29. She has no new complaints. She still has pain in her right knee. February 01. She has no new complaints. She was seen in the orthopedist office on January 30. The staff felt her complaints of knee pain was due to the length of femur prosthesis. She is still awaiting initial appointment with infectious disease to determine duration of IV antibiotics. February 03. She has no new complaints. Nurse reports there was sanguinous oozing on her hip dressing. February 07. She has no new complaints. Wound oozing has stopped February 09. She has no new complaints. She was seen at the orthopedist office yesterday. Vancomycin was discontinued after 2.5 weeks. Recommendation was made to change to a different antibiotic for additional 4 weeks. February 12. She has no new complaints. She was started on Ancef for a four- week course which will be completed March 08. - Constitutional Vitals: Temp Pulse Resp BP Pulse Ox 98.1 F 93 16 131/82 95 02/12/18 06:21 02/12/18 06:21 02/12/18 06:21 02/12/18 06:21 02/12/18 06:21 Exam: She is resting comfortably in bed and appears in no acute distress. Her affect is bright and cheerful. I reviewed her medications and lab results. Internal Medicine: Result - Labs CBC & Chem 7: 02/08/18 04:05 02/01/18 12:30 Consult Discharge Plan - Plan Referrals: Lambert Mayes DO [Primary Care Provider] - 1 week
[2018-02-13] MEDS: ceFAZolin 1,000 MG in Water for inj. (sterile) 20 ML 10 ML IVP SCH ×3 (00:17→16:45)
[2018-02-13] MEDS: *HR* Enoxaparin 40 MG/0.4 ML SYRINGE SQ SCH (05:52)
[2018-02-13] MEDS: Ascorbic Acid 500 MG TABLET PO SCH (05:52)
[2018-02-13 06:48] LABS: Basophils # 0.1 K/mcL (0.0-0.2); Basophils % 0.8 %; Eosinophils # 0.3 K/mcL (0.0-0.6); Eosinophils % 3.9 %; Hematocrit 32.1 % (35.3-44.9); Immature Granulocytes % 0.2 % (0-4); Lymphocytes # 1.7 K/mcL (0.6-4.6); Lymphocytes % 26.7 %; Mean Corpuscular HGB Conc 31.2 g/dL (31.6-35.5); Mean Corpuscular Hemoglobin 27.9 pg (28.0-33.3); Mean Corpuscular Volume 89.4 fL (83.0-100.0); Mean Platelet Volume 9.1 fL (9.4-12.4); Monocytes # 0.7 K/mcL (0.0-1.3); Monocytes % 10.4 %; Neutrophils # 3.7 K/mcL (1.6-8.9); Platelet Count 466 K/mcL (140-400); Red Blood Count 3.59 M/mcL (3.82-4.97); Red Cell Distribution Width 15.6 % (11.5-14.5)
[2018-02-13] MEDS: Multivit/Ca/Min/Fe/FA 1 TAB TABLET PO SCH (08:09)
[2018-02-13] MEDS: Lactobacillus 1 EACH CAP.SPRINK PO SCH ×2 (08:09→20:04)
[2018-02-13] MEDS: Lisinopril 20 MG TABLET PO SCH ×2 (08:09→20:04)
[2018-02-13] MEDS: *HR* Metformin 500 MG TABLET PO SCH ×2 (08:10→16:45)
[2018-02-14] MEDS: ceFAZolin 1,000 MG in Water for inj. (sterile) 20 ML 10 ML IVP SCH ×4 (00:18→23:29)
[2018-02-14] MEDS: Lactobacillus 1 EACH CAP.SPRINK PO SCH ×2 (09:00→21:00)
[2018-02-14] MEDS: Multivit/Ca/Min/Fe/FA 1 TAB TABLET PO SCH (09:00)
[2018-02-14] MEDS: Lisinopril 20 MG TABLET PO SCH ×2 (09:00→22:00)
[2018-02-14] MEDS: *HR* Metformin 500 MG TABLET PO SCH ×2 (09:00→17:24)
[2018-02-14] MEDS ORDERED: Multivit/Ca/Min/Fe/FA 1 TAB TABLET PO ONE (13:04)
[2018-02-14] MEDS ORDERED: Lisinopril 20 MG TABLET PO ONE (13:04)
[2018-02-14] MEDS ORDERED: *HR* Enoxaparin 40 MG/0.4 ML SYRINGE SQ ONE (13:04)
[2018-02-14] MEDS ORDERED: *HR* Water for inj. (Sterile) 20 ML VIAL IV ONE (13:04)
[2018-02-14] MEDS ORDERED: *HR* Metformin 500 MG TABLET PO ONE (13:04)
[2018-02-14] MEDS ORDERED: Lactobacillus 1 EACH CAP.SPRINK PO ONE (13:04)
[2018-02-14] MEDS ORDERED: Ascorbic Acid 500 MG TABLET PO ONE (13:04)
[2018-02-14] MEDS: *HR* Enoxaparin 40 MG/0.4 ML SYRINGE SQ SCH (14:43)
[2018-02-14] MEDS: Ascorbic Acid 500 MG TABLET PO SCH (14:44)
--- NOTE | 2018-02-14 15:45 | Internal Med Progress Note ---
Date of Encounter: 02/14/18 Time of Encounter: 15:40 - Assessment and plan (1) MSSA (methicillin susceptible Staphylococcus aureus) infection Current Visit: Yes Status: Acute Assessment and plan: January 27. Continue antibiotics with probiotics to complete a 6 week course. February 07. She will see the orthopedist staff tomorrow to determine if antibiotics will be stopped after 4 weeks or continue for 6 weeks total. February 09. Start Ancef and continue 4 weeks. Continue lactobacillus. February 12. Continue Ancef with lactobacillus through 03/08/2018. (2) Status post revision of total hip replacement Current Visit: No Status: Acute Assessment and plan: January 27. Continue therapy evaluation and ongoing intervention. Order labs in a.m. to monitor hemoglobin. I told her aspirin might be discontinued if anemia worsens significantly. January 28. Hemoglobin has decreased from 9.9 to 8.6. Aspirin will be discon tinued and she will be placed on Lovenox for DVT prophylaxis. January 29. Recheck CBC in a.m. February 01. Continue present regimen. February 03. Hold Plavix and Lovenox 24 hours to allow oozing to decrease. February 09. Oozing resolved after withholding Plavix and Lovenox 24 hours. February 14. No further oozing has occurred. (3) DMII (diabetes mellitus, type 2) Current Visit: No Status: Chronic Assessment and plan: January 27. Hemoglobin A1c was 6.5% on 01/17/2018. Continue Glucophage. February 03. Blood sugars satisfactory. Continue Glucophage. 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 Continue lisinopril Qualifiers: Hypertension type: essential hypertension Qualified Code(s): I10 - Essential (primary) hypertension (5) Acute blood loss anemia Current Visit: No Status: Acute Assessment and plan: January 27. Check CBC as per above. January 28. Hemoglobin decreased 8.6. Will start ferrous sulfate with vitamin C in a.m. and change from aspirin to Lovenox for DVT prophylaxis. January 29. Recheck labs in a.m. February 01. CBC pending. February 03. Hemoglobin improved to 9.5. Continue present regimen. February 07. Recheck labs in a.m. February 09. Hemoglobin decreased to 8.8. Continue to monitor periodically. February 12. Recheck labs in a.m. February 14. Hemoglobin improved to 10.0. Continue present regimen. - Subjective Interval history: January 27. She complains of pain in her right upper anteromedial thigh area. She thinks it may be due to leg movements in bed last night. January 28. Patient and staff noticed 2 vesicles measuring approximately 4-5 mm maximum diameter at the lateral edge of her anterior thigh incision site. Duration unknown since the area has been covered for 2-3 days. No other new problems have arisen. January 29. She has no new complaints. She still has pain in her right knee. February 01. She has no new complaints. She was seen in the orthopedist office on January 30. The staff felt her complaints of knee pain was due to the length of femur prosthesis. She is still awaiting initial appointment with infectious disease to determine duration of IV antibiotics. February 03. She has no new complaints. Nurse reports there was sanguinous oozing on her hip dressing. February 07. She has no new complaints. Wound oozing has stopped February 09. She has no new complaints. She was seen at the orthopedist office yesterday. Vancomycin was discontinued after 2.5 weeks. Recommendation was made to change to a different antibiotic for additional 4 weeks. February 12. She has no new complaints. She was started on Ancef for a four- week course which will be completed March 08. February 14. She has no new complaints. - Constitutional Vitals: Temp Pulse Resp BP Pulse Ox 97.5 F L 92 17 139/75 97 02/14/18 06:40 02/14/18 06:40 02/14/18 06:40 02/14/18 06:40 02/14/18 06:40 Exam: She is resting comfortably in bed and appears in no acute distress. Her affect is bright and cheerful. I reviewed her medications and lab results. Internal Medicine: Result - Labs CBC & Chem 7: 02/13/18 06:18 02/01/18 12:30 Consult Discharge Plan - Plan Referrals: Lambert Mayes DO [Primary Care Provider] - 1 week
[2018-02-15] MEDS: Ascorbic Acid 500 MG TABLET PO SCH (05:39)
[2018-02-15] MEDS: *HR* Enoxaparin 40 MG/0.4 ML SYRINGE SQ SCH (05:40)
[2018-02-15 06:06] LABS: Basophils # 0.1 K/mcL (0.0-0.2); Basophils % 0.8 %; Eosinophils # 0.2 K/mcL (0.0-0.6); Eosinophils % 3.6 %; Hemoglobin 9.6 g/dL (11.5-15.4); Immature Granulocytes % 0.3 % (0-4); Lymphocytes # 1.4 K/mcL (0.6-4.6); Lymphocytes % 23.5 %; Mean Corpuscular Hemoglobin 27.7 pg (28.0-33.3); Mean Corpuscular Volume 89.3 fL (83.0-100.0); Mean Platelet Volume 9.1 fL (9.4-12.4); Monocytes # 0.7 K/mcL (0.0-1.3); Monocytes % 11.4 %; Neutrophils # 3.6 K/mcL (1.6-8.9); Platelet Count 409 K/mcL (140-400); Red Blood Count 3.47 M/mcL (3.82-4.97); Red Cell Distribution Width 15.4 % (11.5-14.5); Segmented Neutrophils % 60.4 %
[2018-02-15] MEDS: Lisinopril 20 MG TABLET PO SCH ×2 (08:14→20:02)
[2018-02-15] MEDS: Multivit/Ca/Min/Fe/FA 1 TAB TABLET PO SCH (08:14)
[2018-02-15] MEDS: Lactobacillus 1 EACH CAP.SPRINK PO SCH ×2 (08:14→20:02)
[2018-02-15] MEDS: *HR* Metformin 500 MG TABLET PO SCH ×2 (08:14→17:09)
[2018-02-15] MEDS: ceFAZolin 1,000 MG in Water for inj. (sterile) 20 ML 10 ML IVP SCH ×2 (08:15→17:07)
[2018-02-15] MEDS ORDERED: rifAMPin 150 MG CAPSULE PO SCH (16:30)
[2018-02-15 16:53] LABS: Albumin 3.3 g/dL (3.5-5.7); Albumin/Globulin Ratio 1.1 (1.1-2.2); Bilirubin,Indirect 0.4 mg/dL (0.0-1.2); Bilirubin,Total 0.4 mg/dL (0.3-1.0); Total Protein 6.3 g/dL (6.4-8.9)
[2018-02-16] MEDS: ceFAZolin 1,000 MG in Water for inj. (sterile) 20 ML 10 ML IVP SCH ×3 (00:18→17:20)
[2018-02-16] MEDS: *HR* Enoxaparin 40 MG/0.4 ML SYRINGE SQ SCH (05:59)
[2018-02-16] MEDS: Ascorbic Acid 500 MG TABLET PO SCH (05:59)
[2018-02-16] MEDS ORDERED: rifAMPin 150 MG CAPSULE PO SCH (06:30)
[2018-02-16] MEDS: Multivit/Ca/Min/Fe/FA 1 TAB TABLET PO SCH (07:50)
[2018-02-16] MEDS: Lactobacillus 1 EACH CAP.SPRINK PO SCH ×2 (07:50→20:20)
[2018-02-16] MEDS: Lisinopril 20 MG TABLET PO SCH ×2 (07:50→20:20)
[2018-02-16] MEDS: *HR* Metformin 500 MG TABLET PO SCH ×2 (07:50→17:22)
[2018-02-16] MEDS: rifAMPin 150 MG CAPSULE PO SCH (19:04)
[2018-02-17] MEDS: ceFAZolin 1,000 MG in Water for inj. (sterile) 20 ML 10 ML IVP SCH ×3 (00:42→16:23)
[2018-02-17] MEDS: *HR* Enoxaparin 40 MG/0.4 ML SYRINGE SQ SCH (06:23)
[2018-02-17] MEDS: Ascorbic Acid 500 MG TABLET PO SCH (06:23)
[2018-02-17] MEDS: rifAMPin 150 MG CAPSULE PO SCH ×2 (07:37→18:59)
[2018-02-17] MEDS: Lactobacillus 1 EACH CAP.SPRINK PO SCH ×2 (07:41→20:49)
[2018-02-17] MEDS: *HR* Metformin 500 MG TABLET PO SCH ×2 (07:41→16:24)
[2018-02-17] MEDS: Multivit/Ca/Min/Fe/FA 1 TAB TABLET PO SCH (07:41)
[2018-02-17] MEDS: Lisinopril 20 MG TABLET PO SCH ×2 (07:41→20:49)
[2018-02-18] MEDS: ceFAZolin 1,000 MG in Water for inj. (sterile) 20 ML 10 ML IVP SCH ×3 (00:21→16:11)
[2018-02-18] MEDS: *HR* Enoxaparin 40 MG/0.4 ML SYRINGE SQ SCH (06:38)
[2018-02-18] MEDS: Ascorbic Acid 500 MG TABLET PO SCH (06:38)
[2018-02-18] MEDS: Lactobacillus 1 EACH CAP.SPRINK PO SCH ×2 (08:49→20:25)
[2018-02-18] MEDS: *HR* Metformin 500 MG TABLET PO SCH ×2 (08:49→16:10)
[2018-02-18] MEDS: Multivit/Ca/Min/Fe/FA 1 TAB TABLET PO SCH (08:49)
[2018-02-18] MEDS: Lisinopril 20 MG TABLET PO SCH ×2 (08:49→20:25)
[2018-02-18] MEDS: rifAMPin 150 MG CAPSULE PO SCH ×2 (10:01→20:27)
--- NOTE | 2018-02-18 10:12 | Internal Med Progress Note ---
Date of Encounter: 02/18/18 Time of Encounter: 10:00 - Assessment and plan (1) MSSA (methicillin susceptible Staphylococcus aureus) infection Current Visit: Yes Status: Acute Assessment and plan: January 27. Continue antibiotics with probiotics to complete a 6 week course. February 07. She will see the orthopedist staff tomorrow to determine if antibiotics will be stopped after 4 weeks or continue for 6 weeks total. February 09. Start Ancef and continue 4 weeks. Continue lactobacillus. February 12. Continue Ancef with lactobacillus through 03/08/2018. February 18. Continue Ancef, rifampin, and lactobacillus through 03/08/2018. She reports a follow-up visit with Ortho is scheduled for February 20. (2) Status post revision of total hip replacement Current Visit: No Status: Acute Assessment and plan: January 27. Continue therapy evaluation and ongoing intervention. Order labs in a.m. to monitor hemoglobin. I told her aspirin might be discontinued if anemia worsens significantly. January 28. Hemoglobin has decreased from 9.9 to 8.6. Aspirin will be discontinued and she will be placed on Lovenox for DVT prophylaxis. January 29. Recheck CBC in a.m. February 01. Continue present regimen. February 03. Hold Plavix and Lovenox 24 hours to allow oozing to decrease. February 09. Oozing resolved after withholding Plavix and Lovenox 24 hours. February 14. No further oozing has occurred. (3) DMII (diabetes mellitus, type 2) Current Visit: No Status: Chronic Assessment and plan: January 27. Hemoglobin A1c was 6.5% on 01/17/2018. Continue Glucophage. February 03. Blood sugars satisfactory. Continue Glucophage. February 18. Blood sugars remain consistently satisfactory. Discontinue Accu- Cheks and SSI. 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 Continue lisinopril Qualifiers: Hypertension type: essential hypertension Qualified Code(s): I10 - Essential (primary) hypertension (5) Acute blood loss anemia Current Visit: No Status: Acute Assessment and plan: January 27. Check CBC as per above. January 28. Hemoglobin decreased 8.6. Will start ferrous sulfate with vitamin C in a.m. and change from aspirin to Lovenox for DVT prophylaxis. January 29. Recheck labs in a.m. February 01. CBC pending. February 03. Hemoglobin improved to 9.5. Continue present regimen. February 07. Recheck labs in a.m. February 09. Hemoglobin decreased to 8.8. Continue to monitor periodically. February 12. Recheck labs in a.m. February 14. Hemoglobin improved to 10.0. Continue present regimen. February 18. Hemoglobin minimally decreased to 9.6 on 02/15/2018. Repeat labs are ordered for 02/22/2018. - Subjective Interval history: January 27. She complains of pain in her right upper anteromedial thigh area. She thinks it may be due to leg movements in bed last night. January 28. Patient and staff noticed 2 vesicles measuring approximately 4-5 mm maximum diameter at the lateral edge of her anterior thigh incision site. Duration unknown since the area has been covered for 2-3 days. No other new problems have arisen. January 29. She has no new complaints. She still has pain in her right knee. February 01. She has no new complaints. She was seen in the orthopedist office on January 30. The staff felt her complaints of knee pain was due to the length of femur prosthesis. She is still awaiting initial appointment with infectious disease to determine duration of IV antibiotics. February 03. She has no new complaints. Nurse reports there was sanguinous oozing on her hip dressing. February 07. She has no new complaints. Wound oozing has stopped February 09. She has no new complaints. She was seen at the orthopedist office yesterday. Vancomycin was discontinued after 2.5 weeks. Recommendation was [place] to change to a different antibiotic for additional 4 weeks. February 12. She has no new complaints. She was started on Ancef for a four- week course which will be completed March 08. February 14. She has no new complaints. February 18. She denies pain in her right hip. She thinks the area around the surgical incision may be more erythematous. She reports rifampin was added at the orthopedist visit last week because of the erythema. She does not report drainage. She had no complications on day pass yesterday. - Constitutional Vitals: Temp Pulse Resp BP Pulse Ox 98.6 F 72 16 133/71 98 02/18/18 06:38 02/18/18 06:38 02/18/18 06:38 02/18/18 07:07 02/18/18 06:38 Exam: She appears in no acute distress. The surgical incision site shows no drainage. There is slight erythema noted. I reviewed her medications and lab results. Internal Medicine: Result - Labs CBC & Chem 7: 02/15/18 05:35 02/01/18 12:30 Consult Discharge Plan - Plan Referrals: Lambert Mayes DO [Primary Care Provider] - 1 week
[2018-02-19] MEDS: ceFAZolin 1,000 MG in Water for inj. (sterile) 20 ML 10 ML IVP SCH ×3 (00:30→16:39)
[2018-02-19] MEDS: Ascorbic Acid 500 MG TABLET PO SCH (06:30)
[2018-02-19] MEDS: *HR* Enoxaparin 40 MG/0.4 ML SYRINGE SQ SCH (06:30)
[2018-02-19] MEDS: Lactobacillus 1 EACH CAP.SPRINK PO SCH ×2 (08:41→20:10)
[2018-02-19] MEDS: *HR* Metformin 500 MG TABLET PO SCH ×2 (08:41→16:39)
[2018-02-19] MEDS: Multivit/Ca/Min/Fe/FA 1 TAB TABLET PO SCH (08:41)
[2018-02-19] MEDS: Lisinopril 20 MG TABLET PO SCH ×2 (08:42→20:10)
[2018-02-19] MEDS: rifAMPin 150 MG CAPSULE PO SCH ×2 (10:29→20:10)
[2018-02-19] MEDS: Ondansetron ODT 4 MG TAB.RAPDIS SL PRN (18:38)
[2018-02-20] MEDS: ceFAZolin 1,000 MG in Water for inj. (sterile) 20 ML 10 ML IVP SCH ×3 (00:31→15:16)
[2018-02-20] MEDS: *HR* Enoxaparin 40 MG/0.4 ML SYRINGE SQ SCH (06:20)
[2018-02-20] MEDS: Ascorbic Acid 500 MG TABLET PO SCH (06:21)
[2018-02-20] MEDS: Multivit/Ca/Min/Fe/FA 1 TAB TABLET PO SCH (11:01)
[2018-02-20] MEDS: *HR* Metformin 500 MG TABLET PO SCH ×2 (11:01→15:17)
[2018-02-20] MEDS: Lactobacillus 1 EACH CAP.SPRINK PO SCH ×2 (11:02→20:03)
[2018-02-20] MEDS: Lisinopril 20 MG TABLET PO SCH ×2 (11:02→20:04)
[2018-02-20] MEDS: rifAMPin 150 MG CAPSULE PO SCH ×2 (11:02→20:03)
[2018-02-20] MEDS: Ondansetron ODT 4 MG TAB.RAPDIS SL PRN (20:04)
[2018-02-21] MEDS: ceFAZolin 1,000 MG in Water for inj. (sterile) 20 ML 10 ML IVP SCH ×3 (00:59→17:46)
[2018-02-21] MEDS: *HR* Enoxaparin 40 MG/0.4 ML SYRINGE SQ SCH (06:47)
[2018-02-21] MEDS: Ascorbic Acid 500 MG TABLET PO SCH (06:47)
[2018-02-21] MEDS: Lisinopril 20 MG TABLET PO SCH ×2 (08:38→20:03)
[2018-02-21] MEDS: Multivit/Ca/Min/Fe/FA 1 TAB TABLET PO SCH (08:38)
[2018-02-21] MEDS: Lactobacillus 1 EACH CAP.SPRINK PO SCH ×2 (08:38→20:03)
[2018-02-21] MEDS: *HR* Metformin 500 MG TABLET PO SCH ×2 (08:39→17:45)
[2018-02-21] MEDS: Ondansetron ODT 4 MG TAB.RAPDIS SL PRN ×2 (09:51→20:03)
[2018-02-21] MEDS: rifAMPin 150 MG CAPSULE PO SCH ×2 (10:10→20:03)
[2018-02-22] MEDS: ceFAZolin 1,000 MG in Water for inj. (sterile) 20 ML 10 ML IVP SCH ×3 (00:21→16:28)
[2018-02-22] MEDS: Ascorbic Acid 500 MG TABLET PO SCH (06:04)
[2018-02-22] MEDS: *HR* Enoxaparin 40 MG/0.4 ML SYRINGE SQ SCH (06:04)
[2018-02-22 06:20] LABS: Basophils % 0.8 %; Eosinophils # 0.3 K/mcL (0.0-0.6); Eosinophils % 4.9 %; Hematocrit 30.1 % (35.3-44.9); Hemoglobin 9.5 g/dL (11.5-15.4); Immature Granulocytes % 0.2 % (0-4); Lymphocytes # 1.3 K/mcL (0.6-4.6); Mean Corpuscular HGB Conc 31.6 g/dL (31.6-35.5); Mean Corpuscular Hemoglobin 27.9 pg (28.0-33.3); Mean Corpuscular Volume 88.5 fL (83.0-100.0); Mean Platelet Volume 9.3 fL (9.4-12.4); Monocytes # 0.6 K/mcL (0.0-1.3); Monocytes % 11.7 %; Neutrophils # 3.1 K/mcL (1.6-8.9); Platelet Count 363 K/mcL (140-400); Red Cell Distribution Width 14.6 % (11.5-14.5); Segmented Neutrophils % 57.4 %
[2018-02-22] MEDS: *HR* Metformin 500 MG TABLET PO SCH ×2 (08:21→16:29)
[2018-02-22] MEDS: Lactobacillus 1 EACH CAP.SPRINK PO SCH ×2 (08:21→20:22)
[2018-02-22] MEDS: Lisinopril 20 MG TABLET PO SCH ×2 (08:21→20:22)
[2018-02-22] MEDS: Multivit/Ca/Min/Fe/FA 1 TAB TABLET PO SCH (08:21)
--- NOTE | 2018-02-22 12:45 | Internal Med Progress Note ---
Date of Encounter: 02/22/18 Time of Encounter: 12:30 - Assessment and plan (1) MSSA (methicillin susceptible Staphylococcus aureus) infection Current Visit: Yes Status: Acute Assessment and plan: January 27. Continue antibiotics with probiotics to complete a 6 week course. February 07. She will see the orthopedist staff tomorrow to determine if antibiotics will be stopped after 4 weeks or continue for 6 weeks total. February 09. Start Ancef and continue 4 weeks. Continue lactobacillus. February 12. Continue Ancef with lactobacillus through 03/08/2018. February 18. Continue Ancef, rifampin, and lactobacillus through 03/08/2018. She reports a follow-up visit with Ortho is scheduled for February 20. February 22. Continue present regimen. She has visits with ID and the orthopedist approximately 12 days (2) Status post revision of total hip replacement Current Visit: No Status: Acute Assessment and plan: January 27. Continue therapy evaluation and ongoing intervention. Order labs in a.m. to monitor hemoglobin. I told her aspirin might be discontinued if anemia worsens significantly. January 28. Hemoglobin has decreased from 9.9 to 8.6. Aspirin will be discontinued and she will be placed on Lovenox for DVT prophylaxis. January 29. Recheck CBC in a.m. February 01. Continue present regimen. February 03. Hold Plavix and Lovenox 24 hours to allow oozing to decrease. February 09. Oozing resolved after withholding Plavix and Lovenox 24 hours. February 14. No further oozing has occurred. (3) DMII (diabetes mellitus, type 2) Current Visit: No Status: Chronic Assessment and plan: January 27. Hemoglobin A1c was 6.5% on 01/17/2018. Continue Glucophage. February 03. Blood sugars satisfactory. Continue Glucophage. February 18. Blood sugars remain consistently satisfactory. Discontinue Accu- Cheks and SSI. Qualifiers: Diabetes mellitus mcfp insulin use: unspecified terminologist insulin use status Diabetes mellitus complication status: with unspecified complications Qualified Code(s): E11.8 - Type 2 diabetes mellitus with unspecified complications (4) HTN (hypertension) Current Visit: No Status: Chronic Assessment and plan: January 27. Continue lisinopril Qualifiers: Hypertension type: essential hypertension Qualified Code(s): I10 - Essential (primary) hypertension (5) Acute blood loss anemia Current Visit: No Status: Acute Assessment and plan: January 27. Check CBC as per above. January 28. Hemoglobin decreased 8.6. Will start ferrous sulfate with vitamin C in a.m. and change from aspirin to Lovenox for DVT prophylaxis. January 29. Recheck labs in a.m. February 01. CBC pending. February 03. Hemoglobin improved to 9.5. Continue present regimen. February 07. Recheck labs in a.m. February 09. Hemoglobin decreased to 8.8. Continue to monitor periodically. February 12. Recheck labs in a.m. February 14. Hemoglobin improved to 10.0. Continue present regimen. February 18. Hemoglobin minimally decreased to 9.6 on 02/15/2018. Repeat labs are ordered for 02/22/2018. February 22. Hemoglobin stable at 9.5. - Subjective Interval history: January 27. She complains of pain in her right upper anteromedial thigh area. She thinks it may be due to leg movements in bed last night. January 28. Patient and staff noticed 2 vesicles measuring approximately 4-5 mm maximum diameter at the lateral edge of her anterior thigh incision site. Duration unknown since the area has been covered for 2-3 days. No other new problems have arisen. January 29. She has no new complaints. She still has pain in her right knee. February 01. She has no new complaints. She was seen in the orthopedist office on January 30. The staff felt her complaints of knee pain was due to the length of femur prosthesis. She is still awaiting initial appointment with infectious disease to determine duration of IV antibiotics. February 03. She has no new complaints. Nurse reports there was sanguinous oozing on her hip dressing. February 07. She has no new complaints. Wound oozing has stopped February 09. She has no new complaints. She was seen at the orthopedist office yesterday. Vancomycin was discontinued after 2.5 weeks. Recommendation was made to change to a different antibiotic for additional 4 weeks. February 12. She has no new complaints. She was started on Ancef for a four- week course which will be completed March 08. February 14. She has no new complaints. February 18. She denies pain in her right hip. She thinks the area around the surgical incision may be more erythematous. She reports rifampin was added at the orthopedist visit last week because of the erythema. She does not report drainage. She had no complications on day pass yesterday. February 22. She has no new complaints. She is feeling nauseated taking rifampin but is still using it as directed. - Constitutional Vitals: Temp Pulse Resp BP Pulse Ox 98.5 F 84 16 148/81 95 02/22/18 06:21 02/22/18 06:21 02/22/18 06:21 02/22/18 06:21 02/22/18 06:21 Exam: She is sitting in a chair at bedside resting comfortably. Her affect is bright and cheerful. I reviewed her medications and lab results. Internal Medicine: Result - Labs CBC & Chem 7: 02/22/18 05:57 02/01/18 12:30 Labs: Short CBC 02/22/18 Range/Units 05:57 WBC 5.3 (4.3-11.1) K/mcL Hgb 9.5 L (11.5-15.4) g/dL Hct 30.1 L (35.3-44.9) % Plt Count 363 (140-400) K/mcL Neutrophils # 3.1 (1.6-8.9) K/mcL Consult Discharge Plan - Plan Referrals: Lambert Mayes DO [Primary Care Provider] - 1 week
[2018-02-22] MEDS: rifAMPin 150 MG CAPSULE PO SCH (20:52)
[2018-02-22] MEDS: Ondansetron ODT 4 MG TAB.RAPDIS SL PRN (20:52)
[2018-02-23] MEDS: ceFAZolin 1,000 MG in Water for inj. (sterile) 20 ML 10 ML IVP SCH ×3 (00:24→16:24)
[2018-02-23] MEDS: Ascorbic Acid 500 MG TABLET PO SCH (05:30)
[2018-02-23] MEDS: *HR* Enoxaparin 40 MG/0.4 ML SYRINGE SQ SCH (05:30)
[2018-02-23] MEDS: *HR* Metformin 500 MG TABLET PO SCH ×2 (07:36→16:24)
[2018-02-23] MEDS: Lactobacillus 1 EACH CAP.SPRINK PO SCH ×2 (08:19→20:04)
[2018-02-23] MEDS: Lisinopril 20 MG TABLET PO SCH ×2 (08:20→20:02)
[2018-02-23] MEDS: Multivit/Ca/Min/Fe/FA 1 TAB TABLET PO SCH (08:20)
[2018-02-23] MEDS: rifAMPin 150 MG CAPSULE PO SCH (19:59)
[2018-02-23] MEDS: Ondansetron ODT 4 MG TAB.RAPDIS SL PRN (20:01)
[2018-02-24] MEDS: *HR* Enoxaparin 40 MG/0.4 ML SYRINGE SQ SCH (06:09)
[2018-02-24] MEDS: Ascorbic Acid 500 MG TABLET PO SCH (06:09)
[2018-02-24] MEDS: *HR* Metformin 500 MG TABLET PO SCH ×2 (07:32→16:15)
[2018-02-24] MEDS: ceFAZolin 1,000 MG in Water for inj. (sterile) 20 ML 10 ML IVP SCH ×3 (07:33→16:15)
[2018-02-24] MEDS: Multivit/Ca/Min/Fe/FA 1 TAB TABLET PO SCH (08:13)
[2018-02-24] MEDS: Lactobacillus 1 EACH CAP.SPRINK PO SCH ×2 (08:13→20:26)
[2018-02-24] MEDS: Lisinopril 20 MG TABLET PO SCH ×2 (08:13→20:26)
[2018-02-24] MEDS: rifAMPin 150 MG CAPSULE PO SCH (20:26)
[2018-02-24] MEDS: Ondansetron ODT 4 MG TAB.RAPDIS SL PRN (20:26)
[2018-02-25] MEDS: ceFAZolin 1,000 MG in Water for inj. (sterile) 20 ML 10 ML IVP SCH ×3 (00:24→16:36)
[2018-02-25 05:35] LABS: BUN/Creatinine Ratio 21 (6-26); Blood Urea Nitrogen 13 mg/dL (8-23); Calcium 8.8 mg/dL (8.6-10.3); Carbon Dioxide 28 mEq/L (23-29); Chloride 102 mEq/L (98-107); Glucose 99 mg/dL (70-105); Osmolality,Calculated 284 (280-300); Potassium 3.9 mEq/L (3.5-5.1); Sodium 137 mEq/L (136-145); eGFR For Non-African Americans > 60 (> 60)
[2018-02-25] MEDS: Ascorbic Acid 500 MG TABLET PO SCH (06:03)
[2018-02-25] MEDS: *HR* Enoxaparin 40 MG/0.4 ML SYRINGE SQ SCH (06:04)
[2018-02-25] MEDS: Multivit/Ca/Min/Fe/FA 1 TAB TABLET PO SCH (08:05)
[2018-02-25] MEDS: Lactobacillus 1 EACH CAP.SPRINK PO SCH ×2 (08:05→20:14)
[2018-02-25] MEDS: Lisinopril 20 MG TABLET PO SCH ×2 (08:06→20:14)
[2018-02-25] MEDS: *HR* Metformin 500 MG TABLET PO SCH ×2 (08:06→16:35)
--- NOTE | 2018-02-25 17:57 | Internal Med Progress Note ---
Date of Encounter: 02/25/18 Time of Encounter: 17:50 - Assessment and plan (1) MSSA (methicillin susceptible Staphylococcus aureus) infection Current Visit: Yes Status: Acute Assessment and plan: January 27. Continue antibiotics with probiotics to complete a 6 week course. February 07. She will see the orthopedist staff tomorrow to determine if antibiotics will be stopped after 4 weeks or continue for 6 weeks total. February 09. Start Ancef and continue 4 weeks. Continue lactobacillus. February 12. Continue Ancef with lactobacillus through 03/08/2018. February 18. Continue Ancef, rifampin, and lactobacillus through 03/08/2018. She reports a follow-up visit with Ortho is scheduled for February 20. February 22. Continue present regimen. She has visits with ID and the orthopedist approximately 12 days (2) Status post revision of total hip replacement Current Visit: No Status: Acute Assessment and plan: January 27. Continue therapy evaluation and ongoing intervention. Order labs in a.m. to monitor hemoglobin. I told her aspirin might be discontinued if anemia worsens significantly. January 28. Hemoglobin has decreased from 9.9 to 8.6. Aspirin will be discontinued and she will be placed on Lovenox for DVT prophylaxis. January 29. Recheck CBC in a.m. February 01. Continue present regimen. February 03. Hold Plavix and Lovenox 24 hours to allow oozing to decrease. February 09. Oozing resolved after withholding Plavix and Lovenox 24 hours. February 14. No further oozing has occurred. (3) DMII (diabetes mellitus, type 2) Current Visit: No Status: Chronic Assessment and plan: January 27. Hemoglobin A1c was 6.5% on 01/17/2018. Continue Glucophage. February 03. Blood sugars satisfactory. Continue Glucophage. February 18. Blood sugars remain consistently satisfactory. Discontinue Accu- Cheks and SSI. Qualifiers: Diabetes mellitus usp insulin use: unspecified terminal gauger insulin use status Diabetes mellitus complication status: with unspecified complications Qualified Code(s): E11.8 - Type 2 diabetes mellitus with unspecified complications (4) HTN (hypertension) Current Visit: No Status: Chronic Assessment and plan: January 27. Continue lisinopril Qualifiers: Hypertension type: essential hypertension Qualified Code(s): I10 - Essential (primary) hypertension (5) Acute blood loss anemia Current Visit: No Status: Acute Assessment and plan: January 27. Check CBC as per above. January 28. Hemoglobin decreased 8.6. Will start ferrous sulfate with vitamin C in a.m. and change from aspirin to Lovenox for DVT prophylaxis. January 29. Recheck labs in a.m. February 01. CBC pending. February 03. Hemoglobin improved to 9.5. Continue present regimen. February 07. Recheck labs in a.m. February 09. Hemoglobin decreased to 8.8. Continue to monitor periodically. February 12. Recheck labs in a.m. February 14. Hemoglobin improved to 10.0. Continue present regimen. February 18. Hemoglobin minimally decreased to 9.6 on 02/15/2018. Repeat labs are ordered for 02/22/2018. February 22. Hemoglobin stable at 9.5. - Subjective Interval history: January 27. She complains of pain in her right upper anteromedial thigh area. She thinks it may be due to leg movements in bed last night. January 28. Patient and staff noticed 2 vesicles measuring approximately 4-5 mm maximum diameter at the lateral edge of her anterior thigh incision site. Duration unknown since the area has been covered for 2-3 days. No other new problems have arisen. January 29. She has no new complaints. She still has pain in her right knee. February 01. She has no new complaints. She was seen in the orthopedist office on January 30. The staff felt her complaints of knee pain was due to the length of femur prosthesis. She is still awaiting initial appointment with infectious disease to determine duration of IV antibiotics. February 03. She has no new complaints. Nurse reports there was sanguinous oozing on her hip dressing. February 07. She has no new complaints. Wound oozing has stopped February 09. She has no new complaints. She was seen at the orthopedist office yesterday. Vancomycin was discontinued after 2.5 weeks. Recommendation was made to change to a different antibiotic for additional 4 weeks. February 12. She has no new complaints. She was started on Ancef for a four- week course which will be completed March 08. February 14. She has no new complaints. February 18. She denies pain in her right hip. She thinks the area around the surgical incision may be more erythematous. She reports rifampin was added at the orthopedist visit last week because of the erythema. She does not report drainage. She had no complications on day pass yesterday. February 22. She has no new complaints. She is feeling nauseated taking rifampin but is still using it as directed. February 25. She has no new complaints. She reports nausea has lessened minimally continuing rifampin. - Constitutional Vitals: Temp Pulse Resp BP Pulse Ox 98.7 F 91 16 148/78 99 02/25/18 07:00 02/25/18 07:00 02/25/18 07:00 02/25/18 07:00 02/25/18 07:00 Exam: She is sitting in a chair at bedside resting comfortably. Her affect is bright and cheerful. I reviewed her medications and lab results. Internal Medicine: Result - Labs CBC & Chem 7: 02/22/18 05:57 02/25/18 04:55 Labs: BMP 02/25/18 04:55 Sodium 137 Potassium 3.9 Chloride 102 Carbon Dioxide 28 BUN 13 Creatinine 0.61 Glucose 99 Calcium 8.8 Consult Discharge Plan - Plan Referrals: Lambert Mayes DO [Primary Care Provider] - 1 week
[2018-02-25] MEDS: Ondansetron ODT 4 MG TAB.RAPDIS SL PRN (19:40)
[2018-02-25] MEDS: rifAMPin 150 MG CAPSULE PO SCH (20:14)
[2018-02-26] MEDS: ceFAZolin 1,000 MG in Water for inj. (sterile) 20 ML 10 ML IVP SCH ×3 (02:11→17:13)
[2018-02-26] MEDS: Ascorbic Acid 500 MG TABLET PO SCH (06:41)
[2018-02-26] MEDS: *HR* Enoxaparin 40 MG/0.4 ML SYRINGE SQ SCH (06:41)
[2018-02-26] MEDS: Multivit/Ca/Min/Fe/FA 1 TAB TABLET PO SCH (09:07)
[2018-02-26] MEDS: Lisinopril 20 MG TABLET PO SCH ×2 (09:07→21:00)
[2018-02-26] MEDS: *HR* Metformin 500 MG TABLET PO SCH ×2 (09:07→17:13)
[2018-02-26] MEDS: Lactobacillus 1 EACH CAP.SPRINK PO SCH ×2 (09:07→21:00)
[2018-02-26] MEDS: Ondansetron ODT 4 MG TAB.RAPDIS SL PRN (20:59)
[2018-02-26] MEDS: rifAMPin 150 MG CAPSULE PO SCH (21:01)
[2018-02-27] MEDS: ceFAZolin 1,000 MG in Water for inj. (sterile) 20 ML 10 ML IVP SCH ×4 (00:20→23:47)
[2018-02-27] MEDS: Ascorbic Acid 500 MG TABLET PO SCH (06:48)
[2018-02-27] MEDS: *HR* Enoxaparin 40 MG/0.4 ML SYRINGE SQ SCH (06:48)
[2018-02-27] MEDS: Lactobacillus 1 EACH CAP.SPRINK PO SCH ×2 (08:17→20:59)
[2018-02-27] MEDS: Multivit/Ca/Min/Fe/FA 1 TAB TABLET PO SCH (08:17)
[2018-02-27] MEDS: *HR* Metformin 500 MG TABLET PO SCH ×2 (08:17→16:35)
[2018-02-27] MEDS: Lisinopril 20 MG TABLET PO SCH ×2 (08:17→20:59)
[2018-02-27] MEDS: rifAMPin 150 MG CAPSULE PO SCH (20:58)
[2018-02-27] MEDS: Ondansetron ODT 4 MG TAB.RAPDIS SL PRN (20:58)
[2018-02-28] MEDS: *HR* Enoxaparin 40 MG/0.4 ML SYRINGE SQ SCH (06:31)
[2018-02-28] MEDS: Ascorbic Acid 500 MG TABLET PO SCH (06:32)
[2018-02-28] MEDS: ceFAZolin 1,000 MG in Water for inj. (sterile) 20 ML 10 ML IVP SCH ×2 (09:26→17:16)
[2018-02-28] MEDS: Multivit/Ca/Min/Fe/FA 1 TAB TABLET PO SCH (09:29)
[2018-02-28] MEDS: Lisinopril 20 MG TABLET PO SCH ×2 (09:29→21:21)
[2018-02-28] MEDS: *HR* Metformin 500 MG TABLET PO SCH ×2 (09:29→17:16)
[2018-02-28] MEDS: Lactobacillus 1 EACH CAP.SPRINK PO SCH ×2 (09:29→21:21)
[2018-02-28] MEDS: rifAMPin 150 MG CAPSULE PO SCH (21:22)
[2018-02-28] MEDS: Ondansetron ODT 4 MG TAB.RAPDIS SL PRN (21:29)
[2018-03-01] MEDS: ceFAZolin 1,000 MG in Water for inj. (sterile) 20 ML 10 ML IVP SCH ×4 (00:56→23:47)
[2018-03-01] MEDS: Ascorbic Acid 500 MG TABLET PO SCH (06:08)
[2018-03-01] MEDS: *HR* Enoxaparin 40 MG/0.4 ML SYRINGE SQ SCH (06:09)
[2018-03-01] MEDS: Lisinopril 20 MG TABLET PO SCH ×2 (08:23→20:18)
[2018-03-01] MEDS: Lactobacillus 1 EACH CAP.SPRINK PO SCH ×2 (08:23→20:18)
[2018-03-01] MEDS: Multivit/Ca/Min/Fe/FA 1 TAB TABLET PO SCH (08:23)
[2018-03-01] MEDS: *HR* Metformin 500 MG TABLET PO SCH ×2 (08:25→16:45)
[2018-03-01] MEDS: rifAMPin 150 MG CAPSULE PO SCH (20:19)
[2018-03-01] MEDS: Ondansetron ODT 4 MG TAB.RAPDIS SL PRN (20:19)
[2018-03-02 05:16] LABS: Basophils # 0.1 K/mcL (0.0-0.2); Basophils % 0.9 %; Eosinophils # 0.3 K/mcL (0.0-0.6); Eosinophils % 4.1 %; Hematocrit 32.7 % (35.3-44.9); Hemoglobin 10.1 g/dL (11.5-15.4); Immature Granulocytes % 0.3 % (0-4); Lymphocytes % 30.5 %; Mean Corpuscular HGB Conc 30.9 g/dL (31.6-35.5); Mean Corpuscular Hemoglobin 27.6 pg (28.0-33.3); Mean Corpuscular Volume 89.3 fL (83.0-100.0); Mean Platelet Volume 9.2 fL (9.4-12.4); Monocytes # 0.6 K/mcL (0.0-1.3); Monocytes % 9.6 %; Neutrophils # 3.6 K/mcL (1.6-8.9); Platelet Count 440 K/mcL (140-400); Red Blood Count 3.66 M/mcL (3.82-4.97); Red Cell Distribution Width 14.5 % (11.5-14.5); Segmented Neutrophils % 54.6 %
[2018-03-02] MEDS: Ascorbic Acid 500 MG TABLET PO SCH (05:42)
[2018-03-02] MEDS: *HR* Enoxaparin 40 MG/0.4 ML SYRINGE SQ SCH (05:42)
[2018-03-02] MEDS: ceFAZolin 1,000 MG in Water for inj. (sterile) 20 ML 10 ML IVP SCH ×2 (08:05→16:10)
[2018-03-02] MEDS: Lactobacillus 1 EACH CAP.SPRINK PO SCH ×2 (08:06→20:57)
[2018-03-02] MEDS: Multivit/Ca/Min/Fe/FA 1 TAB TABLET PO SCH (08:06)
[2018-03-02] MEDS: *HR* Metformin 500 MG TABLET PO SCH ×2 (08:06→16:11)
[2018-03-02] MEDS: Lisinopril 20 MG TABLET PO SCH ×2 (08:06→20:56)
[2018-03-02] MEDS: Ondansetron ODT 4 MG TAB.RAPDIS SL PRN (20:56)
[2018-03-02] MEDS: rifAMPin 150 MG CAPSULE PO SCH (20:56)
[2018-03-03] MEDS: ceFAZolin 1,000 MG in Water for inj. (sterile) 20 ML 10 ML IVP SCH ×3 (00:40→16:21)
[2018-03-03] MEDS: *HR* Enoxaparin 40 MG/0.4 ML SYRINGE SQ SCH (06:34)
[2018-03-03] MEDS: Ascorbic Acid 500 MG TABLET PO SCH (06:34)
[2018-03-03] MEDS: *HR* Metformin 500 MG TABLET PO SCH ×2 (07:55→16:20)
[2018-03-03] MEDS: Lisinopril 20 MG TABLET PO SCH ×2 (07:55→21:40)
[2018-03-03] MEDS: Lactobacillus 1 EACH CAP.SPRINK PO SCH ×2 (07:55→21:40)
[2018-03-03] MEDS: Multivit/Ca/Min/Fe/FA 1 TAB TABLET PO SCH (07:55)
[2018-03-03] MEDS: rifAMPin 150 MG CAPSULE PO SCH (21:39)
[2018-03-03] MEDS: Ondansetron ODT 4 MG TAB.RAPDIS SL PRN (21:40)
[2018-03-04] MEDS: ceFAZolin 1,000 MG in Water for inj. (sterile) 20 ML 10 ML IVP SCH ×3 (00:27→16:10)
[2018-03-04] MEDS: Ascorbic Acid 500 MG TABLET PO SCH (06:50)
[2018-03-04] MEDS: *HR* Enoxaparin 40 MG/0.4 ML SYRINGE SQ SCH (06:50)
[2018-03-04] MEDS: Multivit/Ca/Min/Fe/FA 1 TAB TABLET PO SCH (08:13)
[2018-03-04] MEDS: Lactobacillus 1 EACH CAP.SPRINK PO SCH ×2 (08:13→20:33)
[2018-03-04] MEDS: Lisinopril 20 MG TABLET PO SCH ×2 (08:14→20:33)
[2018-03-04] MEDS: *HR* Metformin 500 MG TABLET PO SCH ×2 (08:15→16:10)
--- NOTE | 2018-03-04 10:19 | Internal Med Progress Note ---
Date of Encounter: 03/04/18 Time of Encounter: 10:12 - Assessment and plan (1) MSSA (methicillin susceptible Staphylococcus aureus) infection Current Visit: Yes Status: Acute Assessment and plan: January 27. Continue antibiotics with probiotics to complete a 6 week course. February 07. She will see the orthopedist staff tomorrow to determine if antibiotics will be stopped after 4 weeks or continue for 6 weeks total. February 09. Start Ancef and continue 4 weeks. Continue lactobacillus. February 12. Continue Ancef with lactobacillus through 03/08/2018. February 18. Continue Ancef, rifampin, and lactobacillus through 03/08/2018. She reports a follow-up visit with Ortho is scheduled for February 20. February 22. Continue present regimen. She has visits with ID and the orthopedist approximately 12 days March 04. She has a visit with ID tomorrow and the orthopedist office on March 07. (2) Status post revision of total hip replacement Current Visit: No Status: Acute Assessment and plan: January 27. Continue therapy evaluation and ongoing intervention. Order labs in a.m. to monitor hemoglobin. I told her aspirin might be discontinued if anemia worsens significantly. January 28. Hemoglobin has decreased from 9.9 to 8.6. Aspirin will be discontinued and she will be placed on Lovenox for DVT prophylaxis. January 29. Recheck CBC in a.m. February 01. Continue present regimen. February 03. Hold Plavix and Lovenox 24 hours to allow oozing to decrease. February 09. Oozing resolved after withholding Plavix and Lovenox 24 hours. February 14. No further oozing has occurred. March 04. Follow-up appointments as above (3) DMII (diabetes mellitus, type 2) Current Visit: No Status: Chronic Assessment and plan: January 27. Hemoglobin A1c was 6.5% on 01/17/2018. Continue Glucophage. February 03. Blood sugars satisfactory. Continue Glucophage. February 18. Blood sugars remain consistently satisfactory. Discontinue Accu- Cheks and SSI. 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 Continue lisinopril Qualifiers: Hypertension type: essential hypertension Qualified Code(s): I10 - Essential (primary) hypertension (5) Acute blood loss anemia Current Visit: No Status: Acute Assessment and plan: January 27. Check CBC as per above. January 28. Hemoglobin decreased 8.6. Will start ferrous sulfate with vitamin C in a.m. and change from aspirin to Lovenox for DVT prophylaxis. January 29. Recheck labs in a.m. February 01. CBC pending. February 03. Hemoglobin improved to 9.5. Continue present regimen. February 07. Recheck labs in a.m. February 09. Hemoglobin decreased to 8.8. Continue to monitor periodically. February 12. Recheck labs in a.m. February 14. Hemoglobin improved to 10.0. Continue present regimen. February 18. Hemoglobin minimally decreased to 9.6 on 02/15/2018. Repeat labs are ordered for 02/22/2018. February 22. Hemoglobin stable at 9.5. March 04. Hemoglobin slightly improved to 10.1 on 03/02/2018. Continue present regimen. - Subjective Interval history: January 27. She complains of pain in her right upper anteromedial thigh area. She thinks it may be due to leg movements in bed last night. January 28. Patient and staff noticed 2 vesicles measuring approximately 4-5 mm maximum diameter at the lateral edge of her anterior thigh incision site. Duration unknown since the area has been covered for 2-3 days. No other new problems have arisen. January 29. She has no new complaints. She still has pain in her right knee. February 01. She has no new complaints. She was seen in the orthopedist office on January 30. The staff felt her complaints of knee pain was due to the length of femur prosthesis. She is still awaiting initial appointment with infectious disease to determine duration of IV antibiotics. February 03. She has no new complaints. Nurse reports there was sanguinous oozing on her hip dressing. February 07. She has no new complaints. Wound oozing has stopped February 09. She has no new complaints. She was seen at the orthopedist office yesterday. Vancomycin was discontinued after 2.5 weeks. Recommendation was made to change to a different antibiotic for additional 4 weeks. February 12. She has no new complaints. She was started on Ancef for a four- week course which will be completed March 08. February 14. She has no new complaints. February 18. She denies pain in her right hip. She thinks the area around the surgical incision may be more erythematous. She reports rifampin was added at the orthopedist visit last week because of the erythema. She does not report drainage. She had no complications on day pass yesterday. February 22. She has no new complaints. She is feeling nauseated taking rifampin but is still using it as directed. February 25. She has no new complaints. She reports nausea has lessened minimally continuing rifampin. March 04. She has no new complaints. She had a day pass yesterday without complications. - Constitutional Vitals: Temp Pulse Resp BP Pulse Ox 98.8 F 73 15 131/77 97 03/04/18 06:28 03/04/18 06:28 03/04/18 06:28 03/04/18 06:28 03/04/18 06:28 Exam: She is resting comfortably in a chair at bedside appears in no acute distress. Her affect is bright and cheerful. I reviewed her medications and lab results. Internal Medicine: Result - Labs CBC & Chem 7: 03/02/18 04:45 02/25/18 04:55 Consult Discharge Plan - Plan Referrals: Lambert Mayes DO [Primary Care Provider] - 1 week
[2018-03-04] MEDS: rifAMPin 150 MG CAPSULE PO SCH (19:07)
[2018-03-04] MEDS: Ondansetron ODT 4 MG TAB.RAPDIS SL PRN (19:08)
[2018-03-05] MEDS: ceFAZolin 1,000 MG in Water for inj. (sterile) 20 ML 10 ML IVP SCH ×3 (01:41→17:03)
[2018-03-05] MEDS: Ascorbic Acid 500 MG TABLET PO SCH (06:05)
[2018-03-05] MEDS: *HR* Enoxaparin 40 MG/0.4 ML SYRINGE SQ SCH (06:05)
[2018-03-05] MEDS: Lisinopril 20 MG TABLET PO SCH ×2 (08:26→21:03)
[2018-03-05] MEDS: *HR* Metformin 500 MG TABLET PO SCH ×2 (08:26→17:05)
[2018-03-05] MEDS: Lactobacillus 1 EACH CAP.SPRINK PO SCH ×2 (08:26→21:03)
[2018-03-05] MEDS: Multivit/Ca/Min/Fe/FA 1 TAB TABLET PO SCH (08:26)
[2018-03-05] MEDS: Ondansetron ODT 4 MG TAB.RAPDIS SL PRN (18:50)
[2018-03-05] MEDS: rifAMPin 150 MG CAPSULE PO SCH (18:50)
[2018-03-06] MEDS: ceFAZolin 1,000 MG in Water for inj. (sterile) 20 ML 10 ML IVP SCH ×3 (01:11→16:31)
[2018-03-06] MEDS: *HR* Enoxaparin 40 MG/0.4 ML SYRINGE SQ SCH (06:04)
[2018-03-06] MEDS: Ascorbic Acid 500 MG TABLET PO SCH (06:04)
[2018-03-06] MEDS: *HR* Metformin 500 MG TABLET PO SCH ×2 (08:36→16:31)
[2018-03-06] MEDS: Lactobacillus 1 EACH CAP.SPRINK PO SCH ×2 (08:36→20:19)
[2018-03-06] MEDS: Multivit/Ca/Min/Fe/FA 1 TAB TABLET PO SCH (08:36)
[2018-03-06] MEDS: Lisinopril 20 MG TABLET PO SCH ×2 (08:36→20:19)
[2018-03-06] MEDS: Ondansetron ODT 4 MG TAB.RAPDIS SL PRN (20:18)
[2018-03-06] MEDS: rifAMPin 150 MG CAPSULE PO SCH (20:20)
[2018-03-07] MEDS: ceFAZolin 1,000 MG in Water for inj. (sterile) 20 ML 10 ML IVP SCH ×3 (00:04→16:46)
[2018-03-07] MEDS: Ascorbic Acid 500 MG TABLET PO SCH (06:39)
[2018-03-07] MEDS: *HR* Enoxaparin 40 MG/0.4 ML SYRINGE SQ SCH (06:40)
[2018-03-07] MEDS: Lisinopril 20 MG TABLET PO SCH ×2 (08:38→20:28)
[2018-03-07] MEDS: *HR* Metformin 500 MG TABLET PO SCH ×2 (08:38→16:46)
[2018-03-07] MEDS: Lactobacillus 1 EACH CAP.SPRINK PO SCH ×2 (08:38→20:28)
[2018-03-07] MEDS: Multivit/Ca/Min/Fe/FA 1 TAB TABLET PO SCH (08:38)
--- NOTE | 2018-03-07 16:36 | Internal Med Progress Note ---
Date of Encounter: 03/07/18 Time of Encounter: 15:50 - Assessment and plan (1) MSSA (methicillin susceptible Staphylococcus aureus) infection Current Visit: Yes Status: Acute Assessment and plan: January 27. Continue antibiotics with probiotics to complete a 6 week course. February 07. She will see the orthopedist staff tomorrow to determine if antibiotics will be stopped after 4 weeks or continue for 6 weeks total. February 09. Start Ancef and continue 4 weeks. Continue lactobacillus. February 12. Continue Ancef with lactobacillus through 03/08/2018. February 18. Continue Ancef, rifampin, and lactobacillus through 03/08/2018. She reports a follow-up visit with Ortho is scheduled for February 20. February 22. Continue present regimen. She has visits with ID and the orthopedist approximately 12 days March 04. She has a visit with ID tomorrow and the orthopedist office on March 07. (2) Status post revision of total hip replacement Current Visit: No Status: Acute Assessment and plan: January 27. Continue therapy evaluation and ongoing intervention. Order labs in a.m. to monitor hemoglobin. I told her aspirin might be discontinued if anemia worsens significantly. January 28. Hemoglobin has decreased from 9.9 to 8.6. Aspirin will be discontinued and she will be placed on Lovenox for DVT prophylaxis. January 29. Recheck CBC in a.m. February 01. Continue present regimen. February 03. Hold Plavix and Lovenox 24 hours to allow oozing to decrease. February 09. Oozing resolved after withholding Plavix and Lovenox 24 hours. February 14. No further oozing has occurred. March 04. Follow-up appointments as above (3) DMII (diabetes mellitus, type 2) Current Visit: No Status: Chronic Assessment and plan: January 27. Hemoglobin A1c was 6.5% on 01/17/2018. Continue Glucophage. February 03. Blood sugars satisfactory. Continue Glucophage. February 18. Blood sugars remain consistently satisfactory. Discontinue Accu- Cheks and SSI. 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 Continue lisinopril Qualifiers: Hypertension type: essential hypertension Qualified Code(s): I10 - Essential (primary) hypertension (5) Acute blood loss anemia Current Visit: No Status: Acute Assessment and plan: January 27. Check CBC as per above. January 28. Hemoglobin decreased 8.6. Will start ferrous sulfate with vitamin C in a.m. and change from aspirin to Lovenox for DVT prophylaxis. January 29. Recheck labs in a.m. February 01. CBC pending. February 03. Hemoglobin improved to 9.5. Continue present regimen. February 07. Recheck labs in a.m. February 09. Hemoglobin decreased to 8.8. Continue to monitor periodically. February 12. Recheck labs in a.m. February 14. Hemoglobin improved to 10.0. Continue present regimen. February 18. Hemoglobin minimally decreased to 9.6 on 02/15/2018. Repeat labs are ordered for 02/22/2018. February 22. Hemoglobin stable at 9.5. March 04. Hemoglobin slightly improved to 10.1 on 03/02/2018. Continue present regimen. - Subjective Interval history: January 27. She complains of pain in her right upper anteromedial thigh area. She thinks it may be due to leg movements in bed last night. January 28. Patient and staff noticed 2 vesicles measuring approximately 4-5 mm maximum diameter at the lateral edge of her anterior thigh incision site. Duration unknown since the area has been covered for 2-3 days. No other new problems have arisen. January 29. She has no new complaints. She still has pain in her right knee. February 01. She has no new complaints. She was seen in the orthopedist office on January 30. The staff felt her complaints of knee pain was due to the length of femur prosthesis. She is still awaiting initial appointment with infectious disease to determine duration of IV antibiotics. February 03. She has no new complaints. Nurse reports there was sanguinous oozing on her hip dressing. February 07. She has no new complaints. Wound oozing has stopped February 09. She has no new complaints. She was seen at the orthopedist office yesterday. Vancomycin was discontinued after 2.5 weeks. Recommendation was made to change to a different antibiotic for additional 4 weeks. February 12. She has no new complaints. She was started on Ancef for a four- week course which will be completed March 08. February 14. She has no new complaints. February 18. She denies pain in her right hip. She thinks the area around the surgical incision may be more erythematous. She reports rifampin was added at the orthopedist visit last week because of the erythema. She does not report drainage. She had no complications on day pass yesterday. February 22. She has no new complaints. She is feeling nauseated taking rifampin but is still using it as directed. February 25. She has no new complaints. She reports nausea has lessened minimally continuing rifampin. March 04. She has no new complaints. She had a day pass yesterday without complications. March 07. She has no new complaints. She went to the orthopedist office today and infectious disease office March 05. Arrangements are complete for her to be discharged home tomorrow after IV antibiotics are completed and PICC line discontinued. She will continue oral antibiotics for several more days. - Constitutional Vitals: Temp Pulse Resp BP Pulse Ox 98.2 F 84 18 150/79 99 03/07/18 06:33 03/07/18 06:33 03/07/18 06:33 03/07/18 06:33 03/07/18 06:33 Exam: She is resting comfortably in bed and appears in no acute distress. Her affect is bright and cheerful. I reviewed her medications and lab results. Internal Medicine: Result - Labs CBC & Chem 7: 03/02/18 04:45 02/25/18 04:55 Consult Discharge Plan - Plan Referrals: Lambert Mayes DO [Primary Care Provider] - 1 week
[2018-03-07] MEDS: Ondansetron ODT 4 MG TAB.RAPDIS SL PRN (20:28)
[2018-03-07] MEDS: rifAMPin 150 MG CAPSULE PO SCH (20:29)
[2018-03-08] MEDS: ceFAZolin 1,000 MG in Water for inj. (sterile) 20 ML 10 ML IVP SCH ×3 (00:24→15:41)
[2018-03-08] MEDS: *HR* Enoxaparin 40 MG/0.4 ML SYRINGE SQ SCH (06:05)
[2018-03-08] MEDS: Ascorbic Acid 500 MG TABLET PO SCH (06:05)
[2018-03-08 06:24] VITALS: BP 152/82
[2018-03-08] MEDS: Multivit/Ca/Min/Fe/FA 1 TAB TABLET PO SCH (08:52)
[2018-03-08] MEDS: Lactobacillus 1 EACH CAP.SPRINK PO SCH (08:53)
[2018-03-08] MEDS: *HR* Metformin 500 MG TABLET PO SCH (08:53)
[2018-03-08] MEDS: Lisinopril 20 MG TABLET PO SCH (08:53)
--- NOTE | 2018-03-08 09:46 | Discharge Summary ---
Orders not resulted at time of discharge: Pending orders 03/11/18 04:00 BUN [Blood Urea Nitrogen (BUN)] Routine CBC [Complete Blood Count] [HEME] Routine CRP [C-Reactive Protein] AM 0400 Creatinine Routine ESR [Erythrocyte Sedimentation Rate] [HEME] AM 0400 Date of Encounter: 03/08/18 Time of Encounter: 09:30 - Discharge Diagnosis (1) MSSA (methicillin susceptible Staphylococcus aureus) infection Priority: Primary Status: Acute (2) Status post revision of total hip replacement Priority: Secondary Status: Acute (3) DMII (diabetes mellitus, type 2) Priority: Secondary Status: Chronic Qualifiers: Diabetes mellitus keno terminal operator insulin use: unspecified keno terminal operator insulin use status Diabetes mellitus complication status: with unspecified complications Qualified Code(s): E11.8 - Type 2 diabetes mellitus with unspecified complications (4) HTN (hypertension) Priority: Secondary Status: Chronic Qualifiers: Hypertension type: essential hypertension Qualified Code(s): I10 - Essential (primary) hypertension (5) Acute blood loss anemia Priority: Secondary Status: Acute Hospital course: Ms. Aburto is a 82 year old female who underwent right femoral revision of previous total hip replacement with irrigation and debridement due to infection on 08/21/2017. Her postop course was unremarkable and she was discharged to [facility] swing bed for IV antibiotics and therapy intervention. Initial orders were written by the discharging physicians at [facility]. I saw her on January 26 and performed the swing bed history and physical. She was prescribed IV vancomycin at discharge. This was later discontinued and changed to IV Ancef. She has some erythema and slight swelling and pain develop in the right hip area and the orthopedic staff added oral rifampin. She had gradual resolution of the erythema and pain. She progressed well in PT and OT. It was felt by orthopedist and ID she would be safe for discontinuing IV antibiotics on March 08 and transition to oral Keflex to complete a total treatment course of 3 months. She will follow with the orthopedist and infectious disease staff to monitor progress. Anemia testing done 01/28/2018 showed iron 16, transferrin saturation 6%, transferrin 186, and ferritin 36. She was started on ferrous sulfate with vitamin C and these will be continued discharge. - Time Spent with Patient Total time spent providing and/or coordinating discharge services: - Discharge Medications Prescriptions: Ascorbic Acid [Vitamin C] 500 mg PO 0630 #30 tablet cephALEXin [Keflex] 500 mg PO Q8H #63 capsule Ferrous Sulfate 325 mg PO 0630 #30 tablet Lactobacillus [Culturelle] 1 each PO BID #42 cap.sprink Home Medications: Bran/Gum/Fib/Johana/Psyl/Kelp/Pec [Fiber 6 Tablet] 1,000 mg PO DAILY 08/06/17 [History] Calcium Carbonate/Vitamin D3 [Calcium 600 + Vit D Tablet] 1 tab PO BID 08/06/17 [History] Clopidogrel [Plavix] 75 mg PO DAILY 08/06/17 [History] Lisinopril [Zestril] 20 mg PO BID 08/06/17 [History] Multivitamin [One Daily Multivitamin] 1 tab PO DAILY 08/06/17 [History] Rosuvastatin [Crestor] 20 mg PO HS 08/06/17 [History] metFORMIN [Glucophage] 500 mg PO BIDWM 08/06/17 [History] OxyCODONE Immed Rel [Roxicodone 5 MG] 5 mg PO Q6HR PRN 7 Days #28 tablet 01/20/18 [Rx] Acetaminophen [Tylenol] 650 mg PO Q6HR PRN 01/21/18 [History] Ascorbic Acid [Vitamin C] 500 mg PO 0630 #30 tablet 03/08/18 [Rx] Ferrous Sulfate 325 mg PO 0630 #30 tablet 03/08/18 [Rx] Lactobacillus [Culturelle] 1 each PO BID #42 cap.sprink 03/08/18 [Rx] cephALEXin [Keflex] 500 mg PO Q8H #63 capsule 03/08/18 [Rx] Allergies/Adverse Reactions: Allergy/AdvReac Type Severity Reaction Status Date / Time No Known Allergies Allergy Verified 01/21/18 14:03 Date of admission: 01/25/18 15:05 Primary care physician: Lambert Mayes, DO Consults: 01/25/18 15:44 PT [Consult to Physical Therapy] [CONS] Routine Comment: Evaluate, develop and implement POC Reason for Consult: weakness Does patient have active BEDREST order?: No Is patient medically & hemodynamically stable?: Yes 01/25/18 15:45 OT [Consult to Occupational Therapy] [CONS] Routine Comment: Evaluate, develop and implement POC Reason for Consult: weakness, s/p hip revision Does patient have active BEDREST order?: No Is patient medically & hemodynamically stable?: Yes - Constitutional Vitals: Temp Pulse Resp BP Pulse Ox 98.4 F 90 17 152/82 97 03/08/18 06:22 03/08/18 06:22 03/08/18 06:22 03/08/18 06:22 03/08/18 06:22 - Patient Status Disposition: Home, Self-Care - Discharge Instructions Follow Up With: Lambert Mayes DO [Primary Care Provider] - 1 week - Diet and Activity Activity: as per physical therapy Diet: advance to your usual diet
== END 2018-03-08 16:10 | disposition home or self-care (01) | DRG 560 ==
LOC: INPPIK 15:05
PROVIDERS: ADMIT Internal Medicine; ATTEND Internal Medicine

== ENCOUNTER 2019-01-10 12:55 | Inpatient (IN) ==
[2019-01-10] MEDS: ceFAZolin 2,000 MG in Water for inj. (sterile) 20 ML IVPB SCH (15:28)
[2019-01-10] MEDS: Lactobacillus 1 EACH CAP.SPRINK PO SCH (20:03)
[2019-01-10] MEDS: Lisinopril 20 MG TABLET PO SCH (20:03)
[2019-01-11] MEDS: ceFAZolin 2,000 MG in Water for inj. (sterile) 20 ML IVPB SCH ×2 (03:45→15:41)
[2019-01-11] MEDS: *HR* Enoxaparin 30 MG/0.3 ML SYRINGE SQ SCH (05:54)
[2019-01-11 07:40] LABS: Basophils # 0.1 K/mcL (0.0-0.2); Basophils % 1.1 %; Eosinophils # 0.3 K/mcL (0.0-0.6); Eosinophils % 5.6 %; Hematocrit 33.1 % (35.3-44.9); Hemoglobin 10.5 g/dL (11.5-15.4); Immature Granulocytes % 0.2 % (0-4); Lymphocytes # 1.4 K/mcL (0.6-4.6); Lymphocytes % 25.8 %; Mean Corpuscular HGB Conc 31.7 g/dL (31.6-35.5); Mean Corpuscular Hemoglobin 26.4 pg (28.0-33.3); Mean Corpuscular Volume 83.4 fL (83.0-100.0); Monocytes # 0.5 K/mcL (0.0-1.3); Monocytes % 8.5 %; Neutrophils # 3.2 K/mcL (1.6-8.9); Platelet Count 325 K/mcL (140-400); Red Blood Count 3.97 M/mcL (3.82-4.97); Red Cell Distribution Width 18.4 % (11.5-14.5); Segmented Neutrophils % 58.8 %; White Blood Count 5.5 K/mcL (4.3-11.1)
[2019-01-11 07:54] LABS: BUN/Creatinine Ratio 19 (6-26); Blood Urea Nitrogen 15 mg/dL (8-23); Calcium 9.1 mg/dL (8.6-10.3); Carbon Dioxide 28 mEq/L (23-29); Chloride 105 mEq/L (98-107); Glucose 116 mg/dL (70-105); Osmolality,Calculated 290 (280-300); Potassium 4.2 mEq/L (3.5-5.1); Sodium 139 mEq/L (136-145); eGFR For African Americans > 60 (> 60); eGFR For Non-African Americans > 60 (> 60)
[2019-01-11] MEDS: *HR* Metformin 500 MG TABLET PO SCH (08:13)
[2019-01-11] MEDS: Lisinopril 20 MG TABLET PO SCH ×2 (08:13→20:55)
[2019-01-11] MEDS: Lactobacillus 1 EACH CAP.SPRINK PO SCH ×2 (08:13→20:55)
[2019-01-11 09:17] LABS: Transferrin 192 mg/dL (203-362)
[2019-01-11 09:35] LABS: Ferritin 81 ng/mL (10-120)
[2019-01-11 09:47] LABS: Folate > 22.3 ng/mL (3.0-16.0); Vitamin B12 635 pg/mL (250-1100)
[2019-01-11 10:00] LABS: % Iron Saturation 17 % (15-50); Iron 46 mcg/dL (50-170)
[2019-01-12] MEDS: ceFAZolin 2,000 MG in Water for inj. (sterile) 20 ML IVPB SCH ×2 (03:39→17:40)
[2019-01-12] MEDS: *HR* Enoxaparin 30 MG/0.3 ML SYRINGE SQ SCH (06:02)
[2019-01-12] MEDS: Lactobacillus 1 EACH CAP.SPRINK PO SCH ×2 (10:14→20:00)
[2019-01-12] MEDS: *HR* Metformin 500 MG TABLET PO SCH (10:14)
[2019-01-12] MEDS: Lisinopril 20 MG TABLET PO SCH ×2 (10:14→19:59)
[2019-01-13] MEDS: ceFAZolin 2,000 MG in Water for inj. (sterile) 20 ML IVPB SCH ×2 (05:02→16:10)
[2019-01-13] MEDS: *HR* Enoxaparin 30 MG/0.3 ML SYRINGE SQ SCH (05:02)
[2019-01-13] MEDS: Lactobacillus 1 EACH CAP.SPRINK PO SCH ×2 (08:13→21:02)
[2019-01-13] MEDS: *HR* Metformin 500 MG TABLET PO SCH (08:13)
[2019-01-13] MEDS: Lisinopril 20 MG TABLET PO SCH ×2 (08:13→21:03)
[2019-01-14] MEDS: ceFAZolin 2,000 MG in Water for inj. (sterile) 20 ML IVPB SCH ×2 (04:16→16:30)
[2019-01-14] MEDS: *HR* Enoxaparin 40 MG/0.4 ML SYRINGE SQ SCH (07:01)
[2019-01-14 07:28] LABS: Basophils % 0.7 %; Eosinophils # 0.2 K/mcL (0.0-0.6); Eosinophils % 4.2 %; Hematocrit 33.8 % (35.3-44.9); Hemoglobin 10.5 g/dL (11.5-15.4); Immature Granulocytes % 0.4 % (0-4); Lymphocytes # 1.5 K/mcL (0.6-4.6); Lymphocytes % 27.7 %; Mean Corpuscular HGB Conc 31.1 g/dL (31.6-35.5); Mean Corpuscular Hemoglobin 26.4 pg (28.0-33.3); Mean Corpuscular Volume 84.9 fL (83.0-100.0); Mean Platelet Volume 9.3 fL (9.4-12.4); Monocytes # 0.6 K/mcL (0.0-1.3); Monocytes % 10.7 %; Neutrophils # 3.1 K/mcL (1.6-8.9); Platelet Count 316 K/mcL (140-400); Red Blood Count 3.98 M/mcL (3.82-4.97); Red Cell Distribution Width 19.3 % (11.5-14.5); Segmented Neutrophils % 56.3 %; White Blood Count 5.5 K/mcL (4.3-11.1)
[2019-01-14] MEDS: Lactobacillus 1 EACH CAP.SPRINK PO SCH ×2 (09:18→21:19)
[2019-01-14] MEDS: Lisinopril 20 MG TABLET PO SCH ×2 (09:18→21:19)
[2019-01-14] MEDS: *HR* Metformin 500 MG TABLET PO SCH (09:18)
[2019-01-15] MEDS: *HR* Enoxaparin 40 MG/0.4 ML SYRINGE SQ SCH (05:42)
[2019-01-15] MEDS: ceFAZolin 2,000 MG in Water for inj. (sterile) 20 ML IVPB SCH ×2 (05:43→17:18)
[2019-01-15] MEDS: *HR* Metformin 500 MG TABLET PO SCH (08:23)
[2019-01-15] MEDS: Lisinopril 20 MG TABLET PO SCH ×2 (08:23→19:43)
[2019-01-15] MEDS: Lactobacillus 1 EACH CAP.SPRINK PO SCH ×2 (08:23→19:43)
[2019-01-15] MEDS ORDERED: Ondansetron ODT 4 MG TAB.RAPDIS SL SCH (16:30)
[2019-01-15] MEDS: rifAMPin 150 MG CAPSULE PO SCH (17:18)
[2019-01-16] MEDS: *HR* Enoxaparin 40 MG/0.4 ML SYRINGE SQ SCH (06:26)
[2019-01-16] MEDS: ceFAZolin 2,000 MG in Water for inj. (sterile) 20 ML IVPB SCH ×2 (06:26→18:00)
[2019-01-16 07:16] LABS: Alanine Aminotransferase 4 Units/L (7-52); Albumin 3.6 g/dL (3.5-5.7); Albumin/Globulin Ratio 1.2 (1.1-2.2); Alkaline Phosphatase 70 Units/L (34-104); Aspartate Amino Transferase 14 Units/L (13-39); BUN/Creatinine Ratio 22 (6-26); Bilirubin,Direct 0.1 mg/dL (0.0-0.2); Bilirubin,Indirect 0.5 mg/dL (0.0-1.2); Bilirubin,Total 0.6 mg/dL (0.3-1.0); Blood Urea Nitrogen 17 mg/dL (8-23); Total Protein 6.6 g/dL (6.4-8.9); eGFR For African Americans > 60 (> 60); eGFR For Non-African Americans > 60 (> 60)
[2019-01-16] MEDS: rifAMPin 150 MG CAPSULE PO SCH ×3 (07:51→17:58)
[2019-01-16] MEDS: Lactobacillus 1 EACH CAP.SPRINK PO SCH ×2 (07:51→20:05)
[2019-01-16] MEDS: Lisinopril 20 MG TABLET PO SCH ×2 (07:51→20:05)
[2019-01-16] MEDS: *HR* Metformin 500 MG TABLET PO SCH (07:51)
[2019-01-16] MEDS: Ondansetron ODT 4 MG TAB.RAPDIS SL SCH ×3 (07:51→17:58)
[2019-01-17] MEDS: *HR* Enoxaparin 40 MG/0.4 ML SYRINGE SQ SCH (05:59)
[2019-01-17] MEDS: ceFAZolin 2,000 MG in Water for inj. (sterile) 20 ML IVPB SCH ×2 (06:00→17:12)
[2019-01-17] MEDS: *HR* Metformin 500 MG TABLET PO SCH (09:04)
[2019-01-17] MEDS: Ondansetron ODT 4 MG TAB.RAPDIS SL SCH ×3 (09:04→17:12)
[2019-01-17] MEDS: Lactobacillus 1 EACH CAP.SPRINK PO SCH ×2 (09:04→21:47)
[2019-01-17] MEDS: Lisinopril 20 MG TABLET PO SCH ×2 (09:04→21:47)
[2019-01-17] MEDS: rifAMPin 150 MG CAPSULE PO SCH ×3 (09:10→17:12)
[2019-01-18] MEDS: ceFAZolin 2,000 MG in Water for inj. (sterile) 20 ML IVPB SCH ×2 (05:56→18:01)
[2019-01-18] MEDS: *HR* Enoxaparin 40 MG/0.4 ML SYRINGE SQ SCH (06:00)
[2019-01-18] MEDS: Lactobacillus 1 EACH CAP.SPRINK PO SCH ×2 (08:47→21:02)
[2019-01-18] MEDS: rifAMPin 150 MG CAPSULE PO SCH ×3 (08:47→18:01)
[2019-01-18] MEDS: Lisinopril 20 MG TABLET PO SCH ×3 (08:47→21:04)
[2019-01-18] MEDS: Ondansetron ODT 4 MG TAB.RAPDIS SL SCH ×3 (08:47→18:01)
[2019-01-18] MEDS: *HR* Metformin 500 MG TABLET PO SCH (08:47)
[2019-01-19] MEDS: ceFAZolin 2,000 MG in Water for inj. (sterile) 20 ML IVPB SCH ×2 (06:13→17:22)
[2019-01-19] MEDS: *HR* Enoxaparin 40 MG/0.4 ML SYRINGE SQ SCH (06:24)
[2019-01-19] MEDS: Lactobacillus 1 EACH CAP.SPRINK PO SCH ×2 (10:15→20:03)
[2019-01-19] MEDS: *HR* Metformin 500 MG TABLET PO SCH (10:15)
[2019-01-19] MEDS: Lisinopril 20 MG TABLET PO SCH ×2 (10:15→20:03)
[2019-01-19] MEDS: Ondansetron ODT 4 MG TAB.RAPDIS SL SCH ×3 (10:15→17:22)
[2019-01-19] MEDS: rifAMPin 150 MG CAPSULE PO SCH ×3 (10:20→17:22)
[2019-01-20] MEDS: ceFAZolin 2,000 MG in Water for inj. (sterile) 20 ML IVPB SCH ×2 (05:08→17:54)
[2019-01-20] MEDS: *HR* Enoxaparin 40 MG/0.4 ML SYRINGE SQ SCH (05:09)
[2019-01-20 06:01] LABS: Basophils # 0.1 K/mcL (0.0-0.2); Basophils % 0.9 %; Eosinophils # 0.3 K/mcL (0.0-0.6); Hematocrit 33.8 % (35.3-44.9); Hemoglobin 10.4 g/dL (11.5-15.4); Immature Granulocytes % 0.3 % (0-4); Lymphocytes # 1.9 K/mcL (0.6-4.6); Lymphocytes % 29.7 %; Mean Corpuscular HGB Conc 30.8 g/dL (31.6-35.5); Mean Corpuscular Hemoglobin 26.5 pg (28.0-33.3); Mean Corpuscular Volume 86.2 fL (83.0-100.0); Mean Platelet Volume 9.7 fL (9.4-12.4); Monocytes # 0.6 K/mcL (0.0-1.3); Monocytes % 9.3 %; Neutrophils # 3.7 K/mcL (1.6-8.9); Platelet Count 299 K/mcL (140-400); Red Blood Count 3.92 M/mcL (3.82-4.97); Red Cell Distribution Width 19.9 % (11.5-14.5); Segmented Neutrophils % 55.8 %; White Blood Count 6.5 K/mcL (4.3-11.1)
[2019-01-20 06:21] LABS: Alanine Aminotransferase 5 Units/L (7-52); Albumin 3.5 g/dL (3.5-5.7); Albumin/Globulin Ratio 1.2 (1.1-2.2); Alkaline Phosphatase 95 Units/L (34-104); Aspartate Amino Transferase 15 Units/L (13-39); BUN/Creatinine Ratio 38 (6-26); Bilirubin,Direct 0.1 mg/dL (0.0-0.2); Bilirubin,Indirect 0.4 mg/dL (0.0-1.2); Bilirubin,Total 0.5 mg/dL (0.3-1.0); Blood Urea Nitrogen 36 mg/dL (8-23); Globulin 2.9 g/dL (2.4-3.5); Total Protein 6.4 g/dL (6.4-8.9); eGFR For African Americans > 60 (> 60); eGFR For Non-African Americans 57 (> 60)
[2019-01-20] MEDS: Ondansetron ODT 4 MG TAB.RAPDIS SL SCH ×3 (08:30→17:53)
[2019-01-20] MEDS: *HR* Metformin 500 MG TABLET PO SCH (08:31)
[2019-01-20] MEDS: Lisinopril 20 MG TABLET PO SCH (08:31)
[2019-01-20] MEDS: rifAMPin 150 MG CAPSULE PO SCH ×3 (08:31→17:53)
[2019-01-20] MEDS: Lactobacillus 1 EACH CAP.SPRINK PO SCH ×2 (08:31→20:21)
[2019-01-20 09:26] LABS: C-Reactive Protein 17 mg/L (Less than 10)
[2019-01-21] MEDS: ceFAZolin 2,000 MG in Water for inj. (sterile) 20 ML IVPB SCH ×2 (06:00→17:31)
[2019-01-21] MEDS: *HR* Enoxaparin 40 MG/0.4 ML SYRINGE SQ SCH (06:16)
[2019-01-21] MEDS: Ondansetron ODT 4 MG TAB.RAPDIS SL SCH ×3 (08:27→17:30)
[2019-01-21] MEDS: rifAMPin 150 MG CAPSULE PO SCH ×3 (08:27→17:31)
[2019-01-21] MEDS: Lactobacillus 1 EACH CAP.SPRINK PO SCH ×2 (08:28→20:08)
[2019-01-21] MEDS: Lisinopril 20 MG TABLET PO SCH (08:28)
[2019-01-21] MEDS: *HR* Metformin 500 MG TABLET PO SCH (08:28)
[2019-01-22] MEDS: *HR* Enoxaparin 40 MG/0.4 ML SYRINGE SQ SCH (06:28)
[2019-01-22] MEDS: ceFAZolin 2,000 MG in Water for inj. (sterile) 20 ML IVPB SCH ×2 (06:29→17:35)
[2019-01-22] MEDS: Lisinopril 20 MG TABLET PO SCH (08:31)
[2019-01-22] MEDS: Ondansetron ODT 4 MG TAB.RAPDIS SL SCH ×3 (08:31→17:34)
[2019-01-22] MEDS: rifAMPin 150 MG CAPSULE PO SCH ×3 (08:31→17:34)
[2019-01-22] MEDS: *HR* Metformin 500 MG TABLET PO SCH (08:32)
[2019-01-22] MEDS: Lactobacillus 1 EACH CAP.SPRINK PO SCH ×2 (08:32→19:58)
[2019-01-23 06:23] LABS: Basophils # 0.1 K/mcL (0.0-0.2); Eosinophils # 0.2 K/mcL (0.0-0.6); Eosinophils % 4.3 %; Hematocrit 34.1 % (35.3-44.9); Hemoglobin 10.5 g/dL (11.5-15.4); Immature Granulocytes % 0.4 % (0-4); Lymphocytes # 1.5 K/mcL (0.6-4.6); Lymphocytes % 28.2 %; Mean Corpuscular HGB Conc 30.8 g/dL (31.6-35.5); Mean Corpuscular Hemoglobin 26.6 pg (28.0-33.3); Mean Corpuscular Volume 86.5 fL (83.0-100.0); Mean Platelet Volume 9.7 fL (9.4-12.4); Monocytes # 0.5 K/mcL (0.0-1.3); Monocytes % 10.4 %; Neutrophils # 2.9 K/mcL (1.6-8.9); Platelet Count 306 K/mcL (140-400); Red Blood Count 3.94 M/mcL (3.82-4.97); Red Cell Distribution Width 19.7 % (11.5-14.5); Segmented Neutrophils % 55.7 %; White Blood Count 5.2 K/mcL (4.3-11.1)
[2019-01-23 06:40] LABS: BUN/Creatinine Ratio 47 (6-26); Blood Urea Nitrogen 37 mg/dL (8-23); Calcium 9.3 mg/dL (8.6-10.3); Carbon Dioxide 30 mEq/L (23-29); Chloride 103 mEq/L (98-107); Glucose 111 mg/dL (70-105); Osmolality,Calculated 293 (280-300); Potassium 4.4 mEq/L (3.5-5.1); Sodium 137 mEq/L (136-145); eGFR For African Americans > 60 (> 60); eGFR For Non-African Americans > 60 (> 60)
[2019-01-23] MEDS: ceFAZolin 2,000 MG in Water for inj. (sterile) 20 ML IVPB SCH ×2 (06:43→17:21)
[2019-01-23] MEDS: *HR* Enoxaparin 40 MG/0.4 ML SYRINGE SQ SCH (06:44)
[2019-01-23] MEDS: Lactobacillus 1 EACH CAP.SPRINK PO SCH ×2 (09:09→20:44)
[2019-01-23] MEDS: *HR* Metformin 500 MG TABLET PO SCH (09:09)
[2019-01-23] MEDS: rifAMPin 150 MG CAPSULE PO SCH ×3 (09:09→17:20)
[2019-01-23] MEDS: Ondansetron ODT 4 MG TAB.RAPDIS SL SCH ×3 (09:09→17:21)
[2019-01-23] MEDS: Lisinopril 20 MG TABLET PO SCH (09:10)
[2019-01-24] MEDS: *HR* Enoxaparin 40 MG/0.4 ML SYRINGE SQ SCH (06:23)
[2019-01-24] MEDS: ceFAZolin 2,000 MG in Water for inj. (sterile) 20 ML IVPB SCH ×2 (06:23→18:03)
[2019-01-24] MEDS: *HR* Metformin 500 MG TABLET PO SCH (08:35)
[2019-01-24] MEDS: Lisinopril 20 MG TABLET PO SCH (08:35)
[2019-01-24] MEDS: rifAMPin 150 MG CAPSULE PO SCH ×3 (08:35→17:54)
[2019-01-24] MEDS: Ondansetron ODT 4 MG TAB.RAPDIS SL SCH ×3 (08:35→17:54)
[2019-01-24] MEDS: Lactobacillus 1 EACH CAP.SPRINK PO SCH ×2 (08:36→21:45)
[2019-01-25] MEDS: ceFAZolin 2,000 MG in Water for inj. (sterile) 20 ML IVPB SCH ×2 (07:00→18:14)
[2019-01-25] MEDS: *HR* Enoxaparin 40 MG/0.4 ML SYRINGE SQ SCH (07:01)
[2019-01-25] MEDS: rifAMPin 150 MG CAPSULE PO SCH ×3 (08:30→18:01)
[2019-01-25] MEDS: Lactobacillus 1 EACH CAP.SPRINK PO SCH ×2 (08:30→21:07)
[2019-01-25] MEDS: *HR* Metformin 500 MG TABLET PO SCH (08:30)
[2019-01-25] MEDS: Ondansetron ODT 4 MG TAB.RAPDIS SL SCH ×3 (08:30→18:01)
[2019-01-25] MEDS: Lisinopril 20 MG TABLET PO SCH (08:31)
[2019-01-26] MEDS: ceFAZolin 2,000 MG in Water for inj. (sterile) 20 ML IVPB SCH ×2 (06:58→17:49)
[2019-01-26] MEDS: *HR* Enoxaparin 40 MG/0.4 ML SYRINGE SQ SCH (07:17)
[2019-01-26] MEDS: Ondansetron ODT 4 MG TAB.RAPDIS SL SCH ×3 (09:02→17:49)
[2019-01-26] MEDS: rifAMPin 150 MG CAPSULE PO SCH ×3 (09:03→17:49)
[2019-01-26] MEDS: Lactobacillus 1 EACH CAP.SPRINK PO SCH ×2 (09:03→20:50)
[2019-01-26] MEDS: *HR* Metformin 500 MG TABLET PO SCH (09:04)
[2019-01-26] MEDS: Lisinopril 20 MG TABLET PO SCH (09:04)
[2019-01-27] MEDS: ceFAZolin 2,000 MG in Water for inj. (sterile) 20 ML IVPB SCH ×2 (06:20→17:46)
[2019-01-27 06:28] LABS: Basophils # 0.1 K/mcL (0.0-0.2); Basophils % 0.8 %; Eosinophils # 0.2 K/mcL (0.0-0.6); Hematocrit 36.7 % (35.3-44.9); Hemoglobin 11.4 g/dL (11.5-15.4); Immature Granulocytes % 0.2 % (0-4); Lymphocytes # 1.7 K/mcL (0.6-4.6); Lymphocytes % 28.5 %; Mean Corpuscular HGB Conc 31.1 g/dL (31.6-35.5); Mean Corpuscular Volume 86.8 fL (83.0-100.0); Mean Platelet Volume 9.6 fL (9.4-12.4); Monocytes # 0.6 K/mcL (0.0-1.3); Monocytes % 10.2 %; Neutrophils # 3.5 K/mcL (1.6-8.9); Platelet Count 345 K/mcL (140-400); Red Blood Count 4.23 M/mcL (3.82-4.97); Red Cell Distribution Width 19.8 % (11.5-14.5); Segmented Neutrophils % 57.3 %; White Blood Count 6.1 K/mcL (4.3-11.1)
[2019-01-27 07:24] LABS: Alanine Aminotransferase 7 Units/L (7-52); Albumin 3.8 g/dL (3.5-5.7); Albumin/Globulin Ratio 1.1 (1.1-2.2); Alkaline Phosphatase 95 Units/L (34-104); Aspartate Amino Transferase 15 Units/L (13-39); BUN/Creatinine Ratio 40 (6-26); Bilirubin,Direct 0.1 mg/dL (0.0-0.2); Bilirubin,Indirect 0.3 mg/dL (0.0-1.2); Bilirubin,Total 0.4 mg/dL (0.3-1.0); Blood Urea Nitrogen 30 mg/dL (8-23); Globulin 3.4 g/dL (2.4-3.5); Total Protein 7.2 g/dL (6.4-8.9); eGFR For African Americans > 60 (> 60); eGFR For Non-African Americans > 60 (> 60)
[2019-01-27] MEDS: Ondansetron ODT 4 MG TAB.RAPDIS SL SCH ×3 (08:45→17:44)
[2019-01-27] MEDS: rifAMPin 150 MG CAPSULE PO SCH ×3 (08:46→17:44)
[2019-01-27] MEDS: *HR* Metformin 500 MG TABLET PO SCH (08:46)
[2019-01-27] MEDS: Lactobacillus 1 EACH CAP.SPRINK PO SCH ×2 (08:46→20:34)
[2019-01-27] MEDS: Lisinopril 20 MG TABLET PO SCH (08:47)
[2019-01-27 10:14] LABS: C-Reactive Protein 41 mg/L (Less than 10)
[2019-01-28] MEDS: ceFAZolin 2,000 MG in Water for inj. (sterile) 20 ML IVPB SCH ×2 (05:49→20:00)
[2019-01-28] MEDS: Lisinopril 20 MG TABLET PO SCH (08:49)
[2019-01-28] MEDS: rifAMPin 150 MG CAPSULE PO SCH ×3 (08:49→20:00)
[2019-01-28] MEDS: Lactobacillus 1 EACH CAP.SPRINK PO SCH ×2 (08:49→21:16)
[2019-01-28] MEDS: Ondansetron ODT 4 MG TAB.RAPDIS SL SCH ×3 (08:49→20:00)
[2019-01-28] MEDS: *HR* Metformin 500 MG TABLET PO SCH (08:49)
[2019-01-29] MEDS: ceFAZolin 2,000 MG in Water for inj. (sterile) 20 ML IVPB SCH ×2 (06:00→17:25)
[2019-01-29] MEDS: rifAMPin 150 MG CAPSULE PO SCH ×3 (08:45→17:24)
[2019-01-29] MEDS: Ondansetron ODT 4 MG TAB.RAPDIS SL SCH ×3 (08:45→17:25)
[2019-01-29] MEDS: *HR* Metformin 500 MG TABLET PO SCH (08:46)
[2019-01-29] MEDS: Lisinopril 20 MG TABLET PO SCH (08:46)
[2019-01-29] MEDS: Lactobacillus 1 EACH CAP.SPRINK PO SCH ×2 (08:46→20:56)
[2019-01-30] MEDS: ceFAZolin 2,000 MG in Water for inj. (sterile) 20 ML IVPB SCH ×2 (06:39→19:02)
[2019-01-30] MEDS: Lisinopril 20 MG TABLET PO SCH (08:45)
[2019-01-30] MEDS: rifAMPin 150 MG CAPSULE PO SCH ×3 (08:45→19:01)
[2019-01-30] MEDS: Lactobacillus 1 EACH CAP.SPRINK PO SCH ×2 (08:45→21:13)
[2019-01-30] MEDS: Ondansetron ODT 4 MG TAB.RAPDIS SL SCH ×3 (08:45→19:01)
[2019-01-30] MEDS: *HR* Metformin 500 MG TABLET PO SCH (08:46)
[2019-01-31] MEDS: ceFAZolin 2,000 MG in Water for inj. (sterile) 20 ML IVPB SCH ×2 (06:40→17:57)
[2019-01-31] MEDS: rifAMPin 150 MG CAPSULE PO SCH ×3 (09:20→17:42)
[2019-01-31] MEDS: Lactobacillus 1 EACH CAP.SPRINK PO SCH ×2 (09:20→20:52)
[2019-01-31] MEDS: *HR* Metformin 500 MG TABLET PO SCH (09:20)
[2019-01-31] MEDS: Ondansetron ODT 4 MG TAB.RAPDIS SL SCH ×3 (09:20→17:42)
[2019-01-31] MEDS: Lisinopril 20 MG TABLET PO SCH (09:20)
[2019-02-01] MEDS: ceFAZolin 2,000 MG in Water for inj. (sterile) 20 ML IVPB SCH ×2 (06:38→18:32)
[2019-02-01] MEDS: Lactobacillus 1 EACH CAP.SPRINK PO SCH ×2 (09:55→20:42)
[2019-02-01] MEDS: rifAMPin 150 MG CAPSULE PO SCH ×3 (09:55→18:30)
[2019-02-01] MEDS: *HR* Metformin 500 MG TABLET PO SCH (09:55)
[2019-02-01] MEDS: Ondansetron ODT 4 MG TAB.RAPDIS SL SCH ×3 (09:55→18:30)
[2019-02-01] MEDS: Lisinopril 20 MG TABLET PO SCH (09:55)
[2019-02-02] MEDS: ceFAZolin 2,000 MG in Water for inj. (sterile) 20 ML IVPB SCH ×2 (06:56→18:37)
[2019-02-02] MEDS: Ondansetron ODT 4 MG TAB.RAPDIS SL SCH ×3 (08:55→18:36)
[2019-02-02] MEDS: Lactobacillus 1 EACH CAP.SPRINK PO SCH ×2 (08:55→20:28)
[2019-02-02] MEDS: rifAMPin 150 MG CAPSULE PO SCH ×3 (08:55→18:37)
[2019-02-02] MEDS: *HR* Metformin 500 MG TABLET PO SCH (08:55)
[2019-02-02] MEDS: Lisinopril 20 MG TABLET PO SCH (08:55)
[2019-02-03] MEDS: ceFAZolin 2,000 MG in Water for inj. (sterile) 20 ML IVPB SCH ×2 (06:24→17:49)
[2019-02-03 08:16] LABS: Basophils # 0.1 K/mcL (0.0-0.2); Basophils % 0.8 %; Eosinophils # 0.2 K/mcL (0.0-0.6); Eosinophils % 3.1 %; Hematocrit 36.3 % (35.3-44.9); Hemoglobin 11.2 g/dL (11.5-15.4); Immature Granulocytes % 0.2 % (0-4); Lymphocytes # 1.6 K/mcL (0.6-4.6); Mean Corpuscular HGB Conc 30.9 g/dL (31.6-35.5); Mean Corpuscular Hemoglobin 26.9 pg (28.0-33.3); Mean Corpuscular Volume 87.3 fL (83.0-100.0); Mean Platelet Volume 9.1 fL (9.4-12.4); Monocytes # 0.6 K/mcL (0.0-1.3); Monocytes % 10.5 %; Neutrophils # 3.5 K/mcL (1.6-8.9); Platelet Count 349 K/mcL (140-400); Red Blood Count 4.16 M/mcL (3.82-4.97); Red Cell Distribution Width 19.2 % (11.5-14.5); Segmented Neutrophils % 58.4 %; White Blood Count 6.1 K/mcL (4.3-11.1)
[2019-02-03 08:33] LABS: Alanine Aminotransferase 8 Units/L (7-52); Albumin 3.7 g/dL (3.5-5.7); Albumin/Globulin Ratio 1.1 (1.1-2.2); Alkaline Phosphatase 101 Units/L (34-104); Aspartate Amino Transferase 17 Units/L (13-39); BUN/Creatinine Ratio 30 (6-26); Bilirubin,Direct 0.1 mg/dL (0.0-0.2); Bilirubin,Indirect 0.2 mg/dL (0.0-1.2); Bilirubin,Total 0.3 mg/dL (0.3-1.0); Blood Urea Nitrogen 24 mg/dL (8-23); Globulin 3.5 g/dL (2.4-3.5); Total Protein 7.2 g/dL (6.4-8.9); eGFR For African Americans > 60 (> 60); eGFR For Non-African Americans > 60 (> 60)
[2019-02-03] MEDS: *HR* Metformin 500 MG TABLET PO SCH (09:54)
[2019-02-03] MEDS: Lactobacillus 1 EACH CAP.SPRINK PO SCH ×2 (09:54→21:12)
[2019-02-03] MEDS: rifAMPin 150 MG CAPSULE PO SCH ×3 (09:55→17:50)
[2019-02-03] MEDS: Lisinopril 20 MG TABLET PO SCH (09:55)
[2019-02-03] MEDS: Ondansetron ODT 4 MG TAB.RAPDIS SL SCH ×3 (09:55→17:50)
[2019-02-03 11:40] LABS: C-Reactive Protein 34 mg/L (Less than 10)
[2019-02-04] MEDS: ceFAZolin 2,000 MG in Water for inj. (sterile) 20 ML IVPB SCH ×2 (06:50→17:13)
[2019-02-04] MEDS: rifAMPin 150 MG CAPSULE PO SCH ×3 (08:07→17:12)
[2019-02-04] MEDS: Lactobacillus 1 EACH CAP.SPRINK PO SCH ×2 (08:07→20:39)
[2019-02-04] MEDS: Ondansetron ODT 4 MG TAB.RAPDIS SL SCH ×3 (08:08→17:12)
[2019-02-04] MEDS: *HR* Metformin 500 MG TABLET PO SCH (08:08)
[2019-02-04] MEDS: Lisinopril 20 MG TABLET PO SCH (08:08)
[2019-02-05] MEDS: ceFAZolin 2,000 MG in Water for inj. (sterile) 20 ML IVPB SCH ×2 (06:51→17:35)
[2019-02-05] MEDS: *HR* Metformin 500 MG TABLET PO SCH (08:31)
[2019-02-05] MEDS: Ondansetron ODT 4 MG TAB.RAPDIS SL SCH ×3 (08:31→17:34)
[2019-02-05] MEDS: Lactobacillus 1 EACH CAP.SPRINK PO SCH ×2 (08:31→21:14)
[2019-02-05] MEDS: Lisinopril 20 MG TABLET PO SCH (08:32)
[2019-02-05] MEDS: rifAMPin 150 MG CAPSULE PO SCH ×3 (08:32→17:35)
[2019-02-06] MEDS: ceFAZolin 2,000 MG in Water for inj. (sterile) 20 ML IVPB SCH ×2 (06:45→18:09)
[2019-02-06] MEDS: Ondansetron ODT 4 MG TAB.RAPDIS SL SCH ×3 (08:12→18:09)
[2019-02-06] MEDS: Lisinopril 20 MG TABLET PO SCH (08:13)
[2019-02-06] MEDS: *HR* Metformin 500 MG TABLET PO SCH (08:13)
[2019-02-06] MEDS: Lactobacillus 1 EACH CAP.SPRINK PO SCH ×2 (08:13→21:07)
[2019-02-06] MEDS: rifAMPin 150 MG CAPSULE PO SCH ×3 (08:13→18:09)
[2019-02-07] MEDS: ceFAZolin 2,000 MG in Water for inj. (sterile) 20 ML IVPB SCH ×2 (05:42→17:02)
[2019-02-07] MEDS: Ondansetron ODT 4 MG TAB.RAPDIS SL SCH ×3 (08:56→16:57)
[2019-02-07] MEDS: Lactobacillus 1 EACH CAP.SPRINK PO SCH ×2 (08:57→22:07)
[2019-02-07] MEDS: rifAMPin 150 MG CAPSULE PO SCH ×3 (08:57→16:57)
[2019-02-07] MEDS: Lisinopril 20 MG TABLET PO SCH (08:57)
[2019-02-07] MEDS: *HR* Metformin 500 MG TABLET PO SCH (08:57)
[2019-02-08] MEDS: ceFAZolin 2,000 MG in Water for inj. (sterile) 20 ML IVPB SCH ×2 (06:35→18:14)
[2019-02-08] MEDS: Lisinopril 20 MG TABLET PO SCH (08:30)
[2019-02-08] MEDS: *HR* Metformin 500 MG TABLET PO SCH (08:30)
[2019-02-08] MEDS: Lactobacillus 1 EACH CAP.SPRINK PO SCH ×2 (08:30→21:05)
[2019-02-08] MEDS: rifAMPin 150 MG CAPSULE PO SCH ×3 (08:30→18:14)
[2019-02-08] MEDS: Ondansetron ODT 4 MG TAB.RAPDIS SL SCH ×3 (08:30→18:14)
[2019-02-09] MEDS: ceFAZolin 2,000 MG in Water for inj. (sterile) 20 ML IVPB SCH ×2 (06:13→18:08)
[2019-02-09] MEDS: rifAMPin 150 MG CAPSULE PO SCH ×3 (08:51→18:09)
[2019-02-09] MEDS: Lactobacillus 1 EACH CAP.SPRINK PO SCH ×2 (08:51→22:02)
[2019-02-09] MEDS: *HR* Metformin 500 MG TABLET PO SCH (08:51)
[2019-02-09] MEDS: Ondansetron ODT 4 MG TAB.RAPDIS SL SCH ×3 (08:51→18:09)
[2019-02-09] MEDS: Lisinopril 20 MG TABLET PO SCH (08:51)
[2019-02-10] MEDS: ceFAZolin 2,000 MG in Water for inj. (sterile) 20 ML IVPB SCH ×2 (06:20→18:42)
[2019-02-10] MEDS: Ondansetron ODT 4 MG TAB.RAPDIS SL SCH ×3 (08:40→17:49)
[2019-02-10] MEDS: Lactobacillus 1 EACH CAP.SPRINK PO SCH ×2 (08:40→21:36)
[2019-02-10] MEDS: *HR* Metformin 500 MG TABLET PO SCH (08:41)
[2019-02-10] MEDS: Lisinopril 20 MG TABLET PO SCH (08:41)
[2019-02-10] MEDS: rifAMPin 150 MG CAPSULE PO SCH ×3 (08:41→17:49)
[2019-02-10 09:23] LABS: White Blood Count 7.1 K/mcL (4.3-11.1)
[2019-02-10 09:24] LABS: Basophils % 0.6 %; Eosinophils # 0.2 K/mcL (0.0-0.6); Eosinophils % 2.1 %; Hematocrit 37.2 % (35.3-44.9); Hemoglobin 11.3 g/dL (11.5-15.4); Immature Granulocytes % 0.3 % (0-4); Lymphocytes # 0.9 K/mcL (0.6-4.6); Lymphocytes % 12.9 %; Mean Corpuscular HGB Conc 30.4 g/dL (31.6-35.5); Mean Corpuscular Hemoglobin 26.9 pg (28.0-33.3); Mean Corpuscular Volume 88.6 fL (83.0-100.0); Mean Platelet Volume 9.4 fL (9.4-12.4); Monocytes # 0.5 K/mcL (0.0-1.3); Monocytes % 6.9 %; Neutrophils # 5.5 K/mcL (1.6-8.9); Platelet Count 302 K/mcL (140-400); Red Cell Distribution Width 18.7 % (11.5-14.5); Segmented Neutrophils % 77.2 %
[2019-02-10 10:51] LABS: Alanine Aminotransferase 7 Units/L (7-52); Albumin 3.5 g/dL (3.5-5.7); Albumin/Globulin Ratio 1.2 (1.1-2.2); Alkaline Phosphatase 86 Units/L (34-104); Aspartate Amino Transferase 16 Units/L (13-39); BUN/Creatinine Ratio 36 (6-26); Bilirubin,Direct 0.1 mg/dL (0.0-0.2); Bilirubin,Indirect 0.2 mg/dL (0.0-1.2); Bilirubin,Total 0.3 mg/dL (0.3-1.0); Blood Urea Nitrogen 26 mg/dL (8-23); Total Protein 6.5 g/dL (6.4-8.9); eGFR For African Americans > 60 (> 60); eGFR For Non-African Americans > 60 (> 60)
[2019-02-10 13:38] LABS: C-Reactive Protein 23 mg/L (Less than 10)
[2019-02-11] MEDS: rifAMPin 150 MG CAPSULE PO SCH ×3 (06:56→17:05)
[2019-02-11] MEDS: Ondansetron ODT 4 MG TAB.RAPDIS SL SCH ×3 (06:57→17:05)
[2019-02-11] MEDS: Lisinopril 20 MG TABLET PO SCH (06:57)
[2019-02-11] MEDS: ceFAZolin 2,000 MG in Water for inj. (sterile) 20 ML IVPB SCH ×2 (06:57→17:05)
[2019-02-11] MEDS: *HR* Metformin 500 MG TABLET PO SCH (06:57)
[2019-02-11] MEDS: Lactobacillus 1 EACH CAP.SPRINK PO SCH ×2 (06:57→20:52)
[2019-02-12] MEDS: ceFAZolin 2,000 MG in Water for inj. (sterile) 20 ML IVPB SCH ×2 (06:28→17:10)
[2019-02-12] MEDS: rifAMPin 150 MG CAPSULE PO SCH ×3 (08:54→17:09)
[2019-02-12] MEDS: Ondansetron ODT 4 MG TAB.RAPDIS SL SCH ×3 (08:54→17:09)
[2019-02-12] MEDS: Lisinopril 20 MG TABLET PO SCH (08:55)
[2019-02-12] MEDS: *HR* Metformin 500 MG TABLET PO SCH (08:55)
[2019-02-12] MEDS: Lactobacillus 1 EACH CAP.SPRINK PO SCH ×2 (08:55→20:10)
[2019-02-13] MEDS: ceFAZolin 2,000 MG in Water for inj. (sterile) 20 ML IVPB SCH ×2 (05:54→17:46)
[2019-02-13] MEDS: Ondansetron ODT 4 MG TAB.RAPDIS SL SCH ×3 (08:55→17:42)
[2019-02-13] MEDS: Lisinopril 20 MG TABLET PO SCH (08:56)
[2019-02-13] MEDS: *HR* Metformin 500 MG TABLET PO SCH (08:56)
[2019-02-13] MEDS: Lactobacillus 1 EACH CAP.SPRINK PO SCH ×2 (08:56→20:39)
[2019-02-13] MEDS: rifAMPin 150 MG CAPSULE PO SCH ×3 (08:56→17:42)
[2019-02-14] MEDS: ceFAZolin 2,000 MG in Water for inj. (sterile) 20 ML IVPB SCH ×2 (06:02→17:01)
[2019-02-14] MEDS: Lactobacillus 1 EACH CAP.SPRINK PO SCH ×2 (08:27→21:05)
[2019-02-14] MEDS: *HR* Metformin 500 MG TABLET PO SCH (08:27)
[2019-02-14] MEDS: Lisinopril 20 MG TABLET PO SCH (08:27)
[2019-02-14] MEDS: Ondansetron ODT 4 MG TAB.RAPDIS SL SCH ×3 (09:00→16:58)
[2019-02-14] MEDS: rifAMPin 150 MG CAPSULE PO SCH ×3 (09:03→16:58)
[2019-02-15] MEDS: ceFAZolin 2,000 MG in Water for inj. (sterile) 20 ML IVPB SCH ×2 (06:42→17:17)
[2019-02-15] MEDS: rifAMPin 150 MG CAPSULE PO SCH ×3 (07:57→17:16)
[2019-02-15] MEDS: Lisinopril 20 MG TABLET PO SCH (07:57)
[2019-02-15] MEDS: *HR* Metformin 500 MG TABLET PO SCH (07:57)
[2019-02-15] MEDS: Lactobacillus 1 EACH CAP.SPRINK PO SCH ×2 (07:57→21:24)
[2019-02-15] MEDS: Ondansetron ODT 4 MG TAB.RAPDIS SL SCH ×3 (07:57→17:16)
[2019-02-16] MEDS: ceFAZolin 2,000 MG in Water for inj. (sterile) 20 ML IVPB SCH ×2 (06:33→18:27)
[2019-02-16] MEDS: rifAMPin 150 MG CAPSULE PO SCH ×3 (08:42→18:40)
[2019-02-16] MEDS: *HR* Metformin 500 MG TABLET PO SCH (08:43)
[2019-02-16] MEDS: Lisinopril 20 MG TABLET PO SCH (08:43)
[2019-02-16] MEDS: Ondansetron ODT 4 MG TAB.RAPDIS SL SCH ×3 (08:43→18:42)
[2019-02-16] MEDS: Lactobacillus 1 EACH CAP.SPRINK PO SCH ×2 (08:43→20:14)
[2019-02-17 05:41] LABS: Basophils % 0.7 %; Eosinophils # 0.2 K/mcL (0.0-0.6); Eosinophils % 4.2 %; Hematocrit 34.4 % (35.3-44.9); Hemoglobin 10.6 g/dL (11.5-15.4); Immature Granulocytes % 0.2 % (0-4); Lymphocytes # 1.6 K/mcL (0.6-4.6); Lymphocytes % 28.8 %; Mean Corpuscular HGB Conc 30.8 g/dL (31.6-35.5); Mean Corpuscular Hemoglobin 27.2 pg (28.0-33.3); Mean Corpuscular Volume 88.4 fL (83.0-100.0); Mean Platelet Volume 9.3 fL (9.4-12.4); Monocytes # 0.6 K/mcL (0.0-1.3); Monocytes % 9.8 %; Neutrophils # 3.2 K/mcL (1.6-8.9); Platelet Count 270 K/mcL (140-400); Red Blood Count 3.89 M/mcL (3.82-4.97); Red Cell Distribution Width 18.9 % (11.5-14.5); Segmented Neutrophils % 56.3 %; White Blood Count 5.7 K/mcL (4.3-11.1)
[2019-02-17] MEDS: ceFAZolin 2,000 MG in Water for inj. (sterile) 20 ML IVPB SCH ×2 (05:56→17:20)
[2019-02-17 07:36] LABS: Alanine Aminotransferase 6 Units/L (7-52); Albumin 3.3 g/dL (3.5-5.7); Albumin/Globulin Ratio 1.1 (1.1-2.2); Alkaline Phosphatase 83 Units/L (34-104); Aspartate Amino Transferase 14 Units/L (13-39); BUN/Creatinine Ratio 36 (6-26); Bilirubin,Direct 0.1 mg/dL (0.0-0.2); Bilirubin,Indirect 0.2 mg/dL (0.0-1.2); Bilirubin,Total 0.3 mg/dL (0.3-1.0); Blood Urea Nitrogen 22 mg/dL (8-23); Total Protein 6.3 g/dL (6.4-8.9); eGFR For African Americans > 60 (> 60); eGFR For Non-African Americans > 60 (> 60)
[2019-02-17] MEDS: Lactobacillus 1 EACH CAP.SPRINK PO SCH ×2 (08:31→20:42)
[2019-02-17] MEDS: Ondansetron ODT 4 MG TAB.RAPDIS SL SCH ×3 (08:31→17:19)
[2019-02-17] MEDS: Lisinopril 20 MG TABLET PO SCH (08:31)
[2019-02-17] MEDS: rifAMPin 150 MG CAPSULE PO SCH ×3 (08:31→17:19)
[2019-02-17] MEDS: *HR* Metformin 500 MG TABLET PO SCH (08:31)
[2019-02-17 10:19] LABS: C-Reactive Protein 27 mg/L (Less than 10)
[2019-02-17] MEDS: Fluconazole 100 MG TABLET PO SCH (17:45)
[2019-02-18] MEDS: ceFAZolin 2,000 MG in Water for inj. (sterile) 20 ML IVPB SCH (05:42)
[2019-02-18] MEDS: rifAMPin 150 MG CAPSULE PO SCH ×3 (07:48→17:32)
[2019-02-18] MEDS: Fluconazole 100 MG TABLET PO SCH (07:49)
[2019-02-18] MEDS: Lactobacillus 1 EACH CAP.SPRINK PO SCH ×2 (07:49→20:27)
[2019-02-18] MEDS: Ondansetron ODT 4 MG TAB.RAPDIS SL SCH ×3 (07:49→17:32)
[2019-02-18] MEDS: Lisinopril 20 MG TABLET PO SCH (07:49)
[2019-02-18] MEDS: *HR* Metformin 500 MG TABLET PO SCH (07:49)
[2019-02-18] MEDS: cephALEXin 500 MG CAPSULE PO SCH (20:27)
[2019-02-19 06:49] VITALS: BP 137/69
[2019-02-19] MEDS: rifAMPin 150 MG CAPSULE PO SCH ×3 (08:22→16:36)
[2019-02-19] MEDS: Lisinopril 20 MG TABLET PO SCH (08:22)
[2019-02-19] MEDS: Ondansetron ODT 4 MG TAB.RAPDIS SL SCH ×3 (08:23→16:36)
[2019-02-19] MEDS: *HR* Metformin 500 MG TABLET PO SCH (08:23)
[2019-02-19] MEDS: Lactobacillus 1 EACH CAP.SPRINK PO SCH (08:23)
[2019-02-19] MEDS: Fluconazole 100 MG TABLET PO SCH (08:23)
[2019-02-19] MEDS: cephALEXin 500 MG CAPSULE PO SCH ×2 (08:23→16:36)
[2019-02-19] MEDS ORDERED: FLU Vac QV 19-20 (6Month+)/PF 0.5 ML SYRINGE IM ONE (12:03)
== END 2019-02-19 16:52 | disposition home or self-care (01) | DRG 945 ==
LOC: INPPIK 13:33
PROVIDERS: ADMIT Internal Medicine; ATTEND Internal Medicine